=== PATIENT | female | born 1995 | race Two or more races ===

== ENCOUNTER 2022-06-09 08:18 | Emergency (ER) | payer OTHER, SELFPAY ==
--- OUTSIDE RECORDS SUMMARY | 2022-06-09 08:21 | XMS REPORT | Continuity of Care Document ---
:1995 Author Organization [facility] t Address [address] [place] [address] Care Team Providers Name Role Phone Pcp, Patient Does Not Have A Primary Care Physician [id number] KAYCEE KISER Attending Clinician Unavailable Doctor Unassigned, [place] Attending Clinician Unavailable Problems This patient has no known problems. Allergies, Adverse Reactions, Alerts Allergy Allergy Status Severity Reaction(s) Onset Inactive Treating Comm ents Source Name Type Date Date Clinician NO KNOWN Drug Active Univers ALLERGIE Class it[facility] of [facility] Social History Social Habit Start Date Stop Date Quantity Comments Source Sex Assigned At [birth year] [facility] 00:00:00 00:00:00 [facility] Smoking Status Start Date Stop Date Source Tobacco smoking consumption [facility] Branch Medications This patient has no known medications. Procedures Procedure Date / Time Performed Performing Clinician [facility] e ASSIGNMENT OF BENEFITS 2022-04-30 15:26:56 Doctor Unasskyle, No [facility] Branch Encounters Start End Encounter Admission Attending Care Care Encounter Source Date/Time Date/Time Type Type Clinicians Facility Department ID 2022-04-30 2022-04-[address] [facility] [id number] Univers 09:30:00 09:30:00 KAYCEE brink [facility] 2022-04-30 2022-04-30 Orders Doctor BLANCO [id number] Univers 00:00:00 00:00:00 Only Unassigned, RUKHSANA [id number] ity of [place] [facility] [id number] Rufus as [id number] [facility] 009 Branch Results This patient has no known results.
[2022-06-09 08:57] LABS: Absolute Lymphocytes (CBC) 2.3 K/uL (0.7-4.9); Hematocrit 36.1 % (36.0-45.0); Lymphocytes % 15.1 % (15.3-44.8); MCV 83.2 fL (80-100); MPV 9.3 fL (7.6-11.3); RBC Red Blood Cell Count 4.33 M/uL (3.86-4.86)
[2022-06-09 09:15] LABS: Albumin 2.5 g/dL (3.4-5.0); Bilirubin Total 0.2 mg/dL (0.2-1.0); Potassium 4.5 mmol/L (3.5-5.1); Protein, Total 7.3 g/dL (6.4-8.2)
[2022-06-09] MEDS ORDERED: ACETAMINOPHEN 500 MG TAB ONE (09:25)
[2022-06-09] MEDS ORDERED: DIAZEPAM 10 MG/2 ML INJ SYRINGE ONE (09:26)
[2022-06-09] MEDS ORDERED: NA CHLORIDE 0.9% 1,000 ML ONE (09:26)
--- NOTE | 2022-06-09 10:01 | RAD REPORT ---
EXAM DESCRIPTION: CT - Chest For Pe Angio - 06/09/2022 9:52 am CLINICAL HISTORY: SOB COMPARISON: No comparisons TECHNIQUE: Dynamically enhanced axial 3 mm thick images of the chest were obtained during administra tion of <100> mL Isovue 370 IV contrast. Coronal and oblique reconstruction images were generated and reviewed. Exam utilizes a protocol for optimal evaluation of pulmonary arterial tree. Maximum intensity projections 3D imaging was utilized All CT scans are performed using dose optimization technique as appropriate and may include automated exposure control or mA/KV adjustment according to patient size. FINDINGS: Chest Wall: No suspicious thyroid nodules or pathologic lymphadenopathy. Lungs: No acute abnormality. Pleura: No significant effusions or pneumothorax. Mediastinum/faustino: No pathologic lymphadenopathy. Pulmonary arteries/Aorta: Suboptimal opacification of the segmental and subsegmental pulmonary arteri es. No central pulmonary embolus. Filling defects identified in the segmental and subsegmental pulmon alistair artery's are favored to represent artifact. No aortic aneurysm. Heart: No significant pericardial effusion. Normal heart size. Upper abdomen: No acute abnormality. Bones: No acute abnormality. IMPRESSION: No central pulmonary embolus. Suboptimal opacification of the segmental and subsegmental pulmonary arteries limits evaluation. A few segmental pulmonary arterial filling defects identified are favored artifact. The lungs are otherwise clear.
--- NOTE | 2022-06-09 10:15 | RAD REPORT ---
EXAM DESCRIPTION: US - Abdomen Exam Limited - 06/09/2022 10:07 am CLINICAL HISTORY: ABD PAIN COMPARISON: No comparisons FINDINGS: The gallbladder demonstrates no gallstones. No pericholecystic fluid or gallbladder wall t hickening. The common bile duct was not visualized. The liver demonstrates no findings of intrahepatic biliary dilatation. IMPRESSION: Negative for cholelithiasis or acute cholecystitis. Nonvisualized common bile duct.
--- NOTE | 2022-06-09 10:20 | RAD REPORT ---
EXAM DESCRIPTION: US - OB Limited - 06/09/2022 10:07 am CLINICAL HISTORY: ABD PAIN COMPARISON: No comparisons FINDINGS: Limited Ob ultrasound due to patient's body habitus and patient's shortness of breath. Cephalic presenting fetus present with positive heart tones measuring 155 beats/minute. The rasheed centa is anterior. Unable to visualize the cervix. NOHELIA 9.3 cm which is lower limits of normal. IMPRESSION: 1. Limited by patient's body habitus and shortness of breath. 2. Cephalic presenting fetus with positive heart tones. 3. NOHELIA at the lower limits of normal. 4. Unable to visualize cervix.
--- NOTE | 2022-06-09 10:36 | ER ---
Nurse's Notes [facility] Name: Karine Austin Age: 27 yrs Sex: Female : 1995 Arrival Date: 06/09/2022 Time: 08:19 Bed 2 Private MD: Diagnosis: Chest pain, unspecified;Abdominal pain, unspecified Presentation: 06/09 08:28 Chief complaint: Patient states: L shoulder pain that radiates down to epigastric area ss that began last night. Pt reports she is 40 weeks and 1 day . Coronavirus screen: Client denies travel out of the [place] in the last 14 days. Ebola Screen: Patient denies exposure to infectious person. Patient denies travel to an Ebola-affected area in the 21 days before illness onset. Initial Sepsis Screen: Does the patient meet any 2 criteria? No. Patient's initial sepsis screen is negative. Does the patient have a suspected source of infection? No. Patient's initial sepsis screen is negative. Risk Assessment: Do you want to hurt yourself or someone else? Patient reports no desire to harm self or others. Onset of symptoms. 08:28 Method Of Arrival: Ambulatory ss 08:28 Acuity: AKOSUA 3 ss Historical: - Allergies: 08:32 No Known Allergies; ss - Home Meds: 08:32 None [Active]; ss - PMHx: 08:32 PCOS; hypertension; ss - PSHx: 08:32 cardiac surgery as a child; ss - Immunization history:: Client reports having NOT received the Covid vaccine. - Social history:: Smoking status: Patient denies any tobacco usage or history of. Screenin:27 [facility] ED Fall Risk Assessment (Adult) Score/Fall Risk Level 3 or more points = High hb Risk Oriented to surroundings, Maintained a safe environment, Educated pt \T\ family on fall prevention, incl call for assistance when getting out of bed, Remained with patient while ambulating, Utilized family, sitter, or virtual lacquer machine feeder as indicated. Abuse screen: Denies threats or abuse. Denies injuries from another. Nutritional screening: No deficits noted. Tuberculosis screening: No symptoms or risk factors identified. Assessment: 09:13 Reassessment: US at bedside. hb 09:28 General: Appears distressed, Behavior is cooperative, anxious. Pain: Pain currently is hb 10 out of 10 on a pain scale. Neuro: Level of Consciousness is awake, alert, obeys commands, Oriented to person, place, time, situation. Cardiovascular: Patient's skin is warm and dry. Rhythm is regular. Respiratory: Respiratory effort is labored, Respiratory pattern is regular, symmetrical. GI: Reports epigastric pain. : No signs and/or symptoms were reported regarding the genitourinary system. EENT: No signs and/or symptoms were reported regarding the EENT system. Derm: Skin is pink, warm \T\ dry. Musculoskeletal: No signs and/or symptoms reported regarding the musculoskeletal system. 09:44 Reassessment: Pt to CT via stretcher. hb 10:18 Reassessment: No changes from previously documented assessment. Patient and/or family hb updated on plan of care and expected duration. Pain level reassessed. 10:49 Reassessment: Report called to Anusha RO at [facility]. hb Vital Signs: 08:28 Pulse 84; Resp 18; Pulse Ox 98% on R/A; Weight 147.42 kg; Height 5 ft. 6 in. (167.64 ss cm); Pain 8/10; 09:14 BP 169 / 109; Pulse 85; Resp 24; Pulse Ox 96% on R/A; hb 10:18 BP 150 / 89; Pulse 92; Resp 23; Pulse Ox 95% on R/A; hb 08:28 Body Mass Index 52.46 (147.42 kg, 167.64 cm) ss Vitals: 09:22 Heart Tones 160. hb ED Course: 08:19 Patient arrived in ED. rg4 08:24 Saran Contreras PA is PHCP. jmm 08:24 Randall Renteria MD is Attending Physician. jmm 08:27 Belia Manning, JAYJAY is Primary Nurse. ko1 08:32 Triage completed. ss 08:32 Arm band placed on right wrist. ss 08:42 Missed attempt(s): 20 gauge in right antecubital area. mm9 08:43 Patient has correct armband on for positive identification. Placed in gown. Bed in low mm9 position. Call light in reach. Side rails up X 1. Adult w/ patient. Warm blanket given. Client placed on continuous cardiac and pulse oximetry monitoring. NIBP monitoring applied. bus driver/monitor on. Pulse ox on. NIBP on. 08:43 EKG done, by ED staff, reviewed by Saran FRY. mm9 08:45 Inserted saline lock: 22 gauge in right hand, using aseptic technique. Blood collected. hb 09:54 CT Chest For PE Angio In Process Unspecified. EDMS 10:09 US OB Limited In Process Unspecified. EDMS 10:09 US Abdomen Limited In Process Unspecified. EDMS 10:22 initiated a transfer with Suzan from the [facility] transfer center at the request of the eb patient. 10:[address] Pittman the L\T\D doctor resource paraprofessional for [facility] with Saran Fry for patient eb transfer consultation. 10:31 administrative approval given by Zohra Rizvi/ patient has been accepted to [facility] L\T\D/ Dr. Pittman has accepted the patient in transfer/ report to be called to [phone]. 11:02 No provider procedures requiring assistance completed. IV discontinued, intact, hb bleeding controlled, No redness/swelling at site. Administered Medications: 09:27 Drug: NS 0.9% 1000 ml Route: IV; Rate: 1 bolus; Site: right hand; hb 09:27 Drug: Valium (diazepam) 2 mg Route: IVP; Site: right hand; hb 09:43 Drug: Acetaminophen 1000 mg Route: PO; hb Medication: 09:44 VIS not applicable for this client. hb Outcome: 10:36 ER care complete, transfer ordered by . jazmín 11:02 Transferred by ground EMS to [facility], Note: [place] hb 11:02 Condition: stable 11:02 Instructed on the need for transfer, Demonstrated understanding of instructions. 11:24 Patient left the ED. hb Signatures: Dispatcher [employer] EDMS Saran Contreras PA PA jmm Smirch, Shelby, RN RN ss Sandhya Wells RN RN hb Lynne Horne rg4 Janene Amaya Kathy, RN RN Linda Gore mm9 Corrections: (The following items were deleted from the chart) 09:30 09:14 BP 169 / 109; ss hb 09:45 09:14 BP 169 / 109; Pulse 85bpm; Resp 22bpm; Pulse Ox 96% RA; hb hb 10:53 10:18 BP 150 / 59; Pulse 92bpm; Resp 23bpm; Pulse Ox 95% RA; hb hb
--- NOTE | 2022-06-09 10:36 | EDPHYS ---
Physician Documentation [facility] Name: Karine Austin Age: 27 yrs Sex: Female : 1995 Arrival Date: 06/09/2022 Time: 08:19 Bed 2 Private MD: ED Physician Randall Renteria HPI: 06/09 08:24 This 27 yrs old Female presents to ER via Ambulatory with complaints of 40 Weeks jmm , Abdominal Pain, Shoulder Pain. 08:24 The patient has shortness of breath at rest. Onset: The symptoms/episode began/occurred jmm gradually. Duration: The symptoms are continuous. The patient's shortness of breath is aggravated by nothing, is alleviated by nothing. This is a 37 year old female with a history of PCOS, HTN, that presents to the ED with complaints of left shoulder pain, chest pain, and left upper quadrant abdominal pain beginning this morning. Patient is at 40 weeks. No care in [place]. Recently moved from [place]. . Historical: - Allergies: 08:32 No Known Allergies; ss - Home Meds: 08:32 None [Active]; ss - PMHx: 08:32 PCOS; hypertension; ss - PSHx: 08:32 cardiac surgery as a child; ss - Immunization history:: Client reports having NOT received the Covid vaccine. - Social history:: Smoking status: Patient denies any tobacco usage or history of. ROS: 08:24 Constitutional: Negative for fever, chills, and weight loss. jmm 08:24 Cardiovascular: Positive for chest pain. 08:24 Respiratory: Positive for shortness of breath. 08:24 Abdomen/GI: Positive for abdominal pain. 08:24 All other systems are negative. Exam: 08:24 Constitutional: This is a well developed, well nourished patient who is awake, alert, jmm and in no acute distress. Head/Face: atraumatic. Eyes: EOMI, no conjunctival erythema appreciated ENT: Moist Mucus Membranes Neck: Trachea midline, Supple Chest/axilla: Normal chest wall appearance and motion. Cardiovascular: Regular rate and rhythm. No edema appreciated Respiratory: Normal respirations, no respiratory distress appreciated 08:24 Skin: General appearance color normal MS/ Extremity: Moves all extremities, no obvious deformities appreciated, no edema noted to the lower extremities Neuro: Awake and alert Psych: Behavior is normal, Mood is normal, Patient is cooperative and pleasant 08:24 Chest/axilla: Palpation: tenderness, that is moderate, of the left supraclavicular area, left clavicle and anterior aspect of left upper chest. 08:24 Abdomen/GI: Inspection: obese Palpation: soft, nontender, in all quadrants. 08:24 Back: pain, that is moderate, of the left trapezius. Vital Signs: 08:28 Pulse 84; Resp 18; Pulse Ox 98% on R/A; Weight 147.42 kg; Height 5 ft. 6 in. (167.64 ss cm); Pain 8/10; 09:14 BP 169 / 109; Pulse 85; Resp 24; Pulse Ox 96% on R/A; hb 10:18 BP 150 / 89; Pulse 92; Resp 23; Pulse Ox 95% on R/A; hb 08:28 Body Mass Index 52.46 (147.42 kg, 167.64 cm) ss MDM: 08:24 Patient medically screened. [facility] 10:07 Data reviewed: vital signs, nurses notes. Counseling: I had a detailed discussion with jazmín the patient and/or guardian regarding: the historical points, exam findings, and any diagnostic results supporting the discharge/admit diagnosis, lab results. ED course: CTA is negative for central PE. . 10:31 Differential diagnosis: Myocardial Infarction pneumonia, Pulmonary Embolism Sepsis [facility] Unstable Angina. Response to treatment: There is no appreciated change of the patient's symptoms at this time. ED course: I discussed the patient with Dr. Pittman whom accepted the patient to her service. . 06/09 08:30 Order name: CBC with Diff; Complete Time: 09:03 [facility] 06/09 08:30 Order name: CMP; Complete Time: 09:16 [facility] 06/09 08:30 Order name: Lipase; Complete Time: 09:16 [facility] 06/09 08:30 Order name: US OB Limited; Complete Time: 10:20 [facility] 06/09 08:30 Order name: US Abdomen Limited; Complete Time: 10:17 [facility] 06/09 08:30 Order name: IV Saline Lock; Complete Time: 09:10 [facility] 06/09 08:30 Order name: Labs collected and sent; Complete Time: 09:10 [facility] 06/09 08:30 Order name: Heart Tones; Complete Time: 09:43 [facility] 06/09 09:16 Order name: CT Chest For PE Angio; Complete Time: 10:02 jmm Administered Medications: 09:27 Drug: NS 0.9% 1000 ml Route: IV; Rate: 1 bolus; Site: right hand; hb 09:27 Drug: Valium (diazepam) 2 mg Route: IVP; Site: right hand; hb 09:43 Drug: Acetaminophen 1000 mg Route: PO; hb Disposition Summary: 06/09/22 10:36 Transfer Ordered Transfer Location: [facility] Reason: Higher level of care jmm Condition: Stable jmm Problem: new jmm Symptoms: are unchanged jmm Accepting Physician: Dr. Pittman(06/09/22 11:24) hb Diagnosis - Chest pain, unspecified jmm - Abdominal pain, unspecified jmm Forms: - Medication Reconciliation Form jmm - SBAR form jmm Signatures: Dispatcher [employer] EDMS Saran Contreras PA PA jmm Smirch, Shelby, RN RN Sandhya Wells RN RN hb Corrections: (The following items were deleted from the chart) 09:26 09:14 Chest Single View+[id number].[email or web address] ordered. EDMS EDMS 11:24 10:36 Dr. Zain spear hb
[2022-06-09 12:01] VITALS: BP 150/89; O2SAT 95
--- NOTE | 2022-06-12 17:22 | EKG ---
Test Date: 2022-06-09 Test Time: 08:45:20 Want Ad Receiver: FAMILIA MEASUREMENT RESULTS: Intervals: Rate: 86 NV: 202 QRSD: 80 QT: 376 QTc: 449 Media: P: 39 NV: 202 QRS: 57 T: 52 INTERPRETIVE STATEMENTS: Sinus rhythm with fusion complexes Otherwise normal ECG No previous ECG available for comparison Electronically Signed On 06-12-22 17:15:19 EDGE PLUGGER by Arnaldo Velásquez
== END 2022-06-09 11:24 | disposition short-term general hospital (02) ==
LOC: ER 08:18
DX: O26.893 Other specified pregnancy related conditions, third trimester (principal); Z3A.40 40 weeks gestation of pregnancy
CPT/HCPCS: 85025; 36415; 83690; 80053; 71275; 76705; 76815; 96374; 99285; Q9967; J3360; J7030; 93005

== ENCOUNTER 2023-02-24 06:08 | Emergency (ER) | payer OTHER ==
--- OUTSIDE RECORDS SUMMARY | 2023-02-24 06:12 | XMS REPORT | Continuity of Care Document ---
:1995 Author Organization [facility] t Address [address] [facility] [address] [place] [address] Care Team Providers Name Role Phone Toña VERA, Christi Primary Care Physician CORAZON MATTHEWS Attending Clinician Unavailable OBI-AGUSTO, CORETTA Attending Clinician Unavailable OBELHAM WOOTENMA Attending Clinician Unavailable BALDO STOKES Attending Clinician Unavailable TAMMY CORDON Attending Clinician Unavailable TAMMY CORDON Attending Clinician Unavailable ARSALAN AMAYA Attending Clinician Unavailable Lab, Web Sleep Attending Clinician Unavailable Arsalan Amaya MD Attending Clinician Christi Bertrand NP Attending Clinician Doctor Unassigned, [place] Attending Clinician Unavailable CHRISTI BERTRAND Attending Clinician Unavailable Baldo Stokes MD Attending Clinician [phone] KAMERON SOLIMAN Attending Clinician Unavailable KAMERON SOLIMAN Attending Clinician Unavailable Nichelle Pittman MD Attending Clinician Jatinder Joiner MD Attending Clinician Blanca Rodrigez MD Attending Clinician KAYCEE KISER Attending Clinician Unavailable CORAZON MATTHEWS Admitting Clinician Unavailable BALDO STOKES Admitting Clinician Unavailable Payers Payer Name Policy Type Policy Number Effective Date Expiration Date S ource MEDICARE PART A [id number] 2015 \\T\\ B 00:00:00 MEDICAID PENDING PENDING 2022 00:00:00 [place] [id number] 2022 00:00:00 [place] CHILDREN JO[place] [id number] 2022 00:00:00 Problems Condition Condition Condition Status Onset Resolution Last Treating Co mments Source Name Details Category Date Date Treatment Clinician Date General General Disease Active Univers counseling counseling 5 [place] of [place] 00 [facility] contracept contracept Br anch ion ion Negative Negative Disease Active Unive rs depression depression 08-27 it y of screening screening 00:00: a s 00 [facility] PCOS PCOS Disease Active Univers (polycysti (polycysti 08-27 it y of c ovarian c ovarian 00:00: syndrome) syndrome) 00 [facility] 40 weeks 40 weeks Disease Active Unive rs gestation gestation 2-12 ity of of of 00:00: [place] 00 [facility] History of History of Disease Active U nivers maternal maternal 2-12 ity of cardiac cardiac 00:00: [place] surgery surgery 00 [facility] Chronic Chronic Disease Active Univers hypertensi hypertensi 2-12 it y of on during on during 00:00: a s 00 [facility] BMI BMI Disease Active Univers 50.0-59.9, 50.0-59.9, 2-12 it y of adult adult 00:00: [place] 00 [facility] Acute Acute Disease Active Univers cystitis cystitis 2-12 ity of without without 00:00: [place] hematuria hematuria 00 [facility] Morbid Morbid Disease Active Univers obesity obesity 2-12 ity of with body with body 00:00: s mass index mass index 00 Me dical of 50 or of 50 or Branch higher higher Uterine Uterine Disease Active Univers contractio contractio 2-11 it y of ns during ns during 00:00: a s 00 [facility] Allergies, Adverse Reactions, Alerts Allergy Allergy Status Severity Reaction(s) Onset Inactive Treating Comm ents Source Name Type Date Date Clinician AMOXICIL DRUG Active Other-Cmnt Univ ers RAMA INGREDI 2-11 ity of 00:00: [place] 00 Medical Branch Amoxicil Propensi Active Other - See Yeast U nivers rama ty to comments 06-09 infection ity o f adverse 00:00: Pt denies [place] reaction 00 having an Medic al s to allergy Branch drug to Amoxicill in 3 NO KNOWN Drug Active Univers ALLERGIE Class ity of S [facility] Social History Social Habit Start Date Stop Date Quantity Comments Source Gender identity Universit y of [place] [facility] Sexual orientation Univer sity of [facility] ASSERTION [facility] Alcohol intake 2022-12-18 2022-12-18 Current drinker Unive rsity of 00:00:00 00:00:00 of alcohol [facility] (finding) Branch Exposure to 2022-08-06 2022-08-16 Not sure [facility] SARS-CoV-2 (event) 00:00:00 12:58:00 [facility] History of Social 2022-08-16 2022-08-16 Univers ity of function 00:00:00 00:00:00 [facility] Alcohol Comment 2022-06-10 2022-06-10 socially outside Uni versity of 00:00:00 [facility]:00:[facility] Tobacco use and 2022-06-09 2022-06-09 Smokeless Universit y of exposure 00:00:00 00:00:00 tobacco non-user [facility] [place] dical [place] [employer] 2022-06-09 2022-06-[address] [place] [address] of 00:00:00 00:00:00 [facility] Sex Assigned At [birth year] Universit y of 00:00:00 00:00:00 [place] [facility] Smoking Status Start Date Stop Date Source Tobacco smoking consumption Univ ersity of [facility] unknown [place] Never smoked tobacco [facility] Medications Ordered Filled Start Stop Current Ordering Indication Dosage Frequency Signature Comments Components Source Medication Medication Date Date Medication? Clinician (SIG) Name Name albuterol Yes [id number] 2{puff} Inhale 2 Univers 90 8-22 Puffs ity of mcg/actuati 00:00: every 6 [place] on inhaler 00 (six) Medical hours as Branch needed for Wheezing, Shortness of Breath or Chest tightness. gabapentin 2022-0 Yes [id number] 300mg Take 1 Univers 300 mg 8-22 capsule by ity of capsule 00:00: mouth in [place] 00 the Medical morning Branch and 1 capsule at noon and 1 capsule in the evening. lidocaine 5 2022-0 Yes [id number] Apply to Univers % ointment 8-22 area(s) 2 ity of 00:00: (two) [place] 00 times Medical daily. Branch methocarbam 2022-0 Yes [id number] 750mg Take 1 Univers oL 8-22 tablet by ity of (ROBAXIN-75 00:00: mouth 2 [place] 0) 750 mg 00 (two) Medical tablet times Branch daily as needed for Other (muscle tightness and spasms). albuterol 2022-0 Yes [id number] 2{puff} Inhale 2 Univers 90 8-22 Puffs ity of mcg/actuati 00:00: every 6 [place] on inhaler 00 (six) Medical hours as Branch needed for Wheezing, Shortness of Breath or Chest tightness. gabapentin 2022-0 Yes [id number] 300mg Take 1 Univers 300 mg 8-22 capsule by ity of capsule 00:00: mouth in [place] 00 the Medical morning Branch and 1 capsule at noon and 1 capsule in the evening. lidocaine 5 2022-0 Yes [id number] Apply to Univers % ointment 8-22 area(s) 2 ity of 00:00: (two) [place] 00 times Medical daily. Branch methocarbam 2022-0 Yes [id number] 750mg Take 1 Univers oL 8-22 tablet by ity of (ROBAXIN-75 00:00: mouth 2 [place] 0) 750 mg 00 (two) Medical tablet times Branch daily as needed for Other (muscle tightness and spasms). albuterol 2022-0 Yes [id number] 2{puff} Inhale 2 Univers 90 8-22 Puffs ity of mcg/actuati 00:00: every 6 [place] on inhaler 00 (six) Medical hours as Branch needed for Wheezing, Shortness of Breath or Chest tightness. gabapentin 2022-0 Yes [id number] 300mg Take 1 Univers 300 mg 8-22 capsule by ity of capsule 00:00: mouth in [place] 00 the Medical morning Branch and 1 capsule at noon and 1 capsule in the evening. lidocaine 5 0 Yes [id number] Apply to Univers % ointment 8-22 area(s) 2 ity of 00:00: (two) [place] 00 times Medical daily. Branch methocarbam 0 Yes [id number] 750mg Take 1 Univers oL 8-22 tablet by ity of (ROBAXIN-75 00:00: mouth 2 [place] 0) 750 mg 00 (two) Medical tablet times Branch daily as needed for Other (muscle tightness and spasms). albuterol 2022-0 Yes [id number] 2{puff} Inhale 2 Univers 90 8-22 Puffs ity of mcg/actuati 00:00: every 6 [place] on inhaler 00 (six) Medical hours as Branch needed for Wheezing, Shortness of Breath or Chest tightness. gabapentin 0 Yes [id number] 300mg Take 1 Univers 300 mg 8-22 capsule by ity of capsule 00:00: mouth in [place] 00 the Medical morning Branch and 1 capsule at noon and 1 capsule in the evening. lidocaine 5 0 Yes [id number] Apply to Univers % ointment 8-22 area(s) 2 ity of 00:00: (two) [place] 00 times Medical daily. Branch methocarbam 0 Yes [id number] 750mg Take 1 Univers oL 8-22 tablet by ity of (ROBAXIN-75 00:00: mouth 2 [place] 0) 750 mg 00 (two) Medical tablet times Branch daily as needed for Other (muscle tightness and spasms). albuterol 2022-0 Yes [id number] 2{puff} Inhale 2 Univers 90 8-22 Puffs ity of mcg/actuati 00:00: every 6 [place] on inhaler 00 (six) Medical hours as Branch needed for Wheezing, Shortness of Breath or Chest tightness. gabapentin 2022-0 Yes [id number] 300mg Take 1 Univers 300 mg 8-22 capsule by ity of capsule 00:00: mouth in [place] 00 the Medical morning Branch and 1 capsule at noon and 1 capsule in the evening. lidocaine 5 2022-0 Yes [id number] Apply to Univers % ointment 8-22 area(s) 2 ity of 00:00: (two) [place] 00 times Medical daily. Branch methocarbam Yes [id number] 750mg Take 1 Univers oL 8-22 tablet by ity of (ROBAXIN-75 00:00: mouth 2 [place] 0) 750 mg 00 (two) Medical tablet times Branch daily as needed for Other (muscle tightness and spasms). albuterol Yes [id number] 2{puff} Inhale 2 Univers 90 8-22 Puffs ity of mcg/actuati 00:00: every 6 [place] on inhaler 00 (six) Medical hours as Branch needed for Wheezing, Shortness of Breath or Chest tightness. gabapentin Yes [id number] 300mg Take 1 Univers 300 mg 8-22 capsule by ity of capsule 00:00: mouth in [place] 00 the Medical morning Branch and 1 capsule at noon and 1 capsule in the evening. lidocaine 5 Yes [id number] Apply to Univers % ointment 8-22 area(s) 2 ity of 00:00: (two) [place] 00 times Medical daily. Branch methocarbam Yes [id number] 750mg Take 1 Univers oL 8-22 tablet by ity of (ROBAXIN-75 00:00: mouth 2 [place] 0) 750 mg 00 (two) Medical tablet times Branch daily as needed for Other (muscle tightness and spasms). sulfur 2022- No [id number] 5mL 5 mL, Unive rs hexafluorid 09-04 Intravenou i ty of e microsphr 20:30: 20:24 s, ONCE, 1 [place] (LUMASON) 00 :00 dose, On Medica l injection Sat09/04/22 Br anch mL at 1530, Routine
restaurant crew member approving Restricted medication : CAM[place] FRAGA cyclobenzap 2022- No 5mg 5 mg, Univ ers rine 06-12 Oral, ity of (FLEXERIL) 17:45: 17:06 ONCE, 1 [place] tablet 5 mg 00 :00 dose, On Medi patsy Sat Branch 06/12/22 at 1145, Routine PNV 2022- No Take by Univers 102-IRON-FO 06-12 mouth. ity o f LATE 05:39: 00:00 [place] 1-DSS-DHA 15 :00 Medical ORAL Branch aspirin 81 2022-0 2022- No 81mg Take 81 mg Univers mg EC 2-14 14 by mouth ity of tablet 05:39: 00:00 in the [place] 15 :00 morning. Medical Branch calcium 2022-0 2022- No 1{tbl} Take 1 Unive rs carbonate 2-14 -14 tablet by ity of (TUMS) 200 05:39: 00:00 [place] mg calcium 15 :00 needed for Med ical (500 mg) Heartburn. Branc h chewable tablet Yes [id number] 1{tbl} Take 1 Univers [id number] 2-14 tablet by ity of fum-folic 00:00: mouth in [facility] s () 00 the Medical 27 mg iron- morning. Bran ch 1 mg folic tablet docusate Yes [id number] 200mg Take 2 U nivers 100 mg 2-14 capsules ity of capsule 00:00: by mouth [place] [address] once daily Medical as needed Branch for Constipati on. ferrous Yes [id number] 325mg Take 1 Un yoly sulfate 325 2-14 tablet by ity of mg (65 mg 00:00: mouth in [facility] iron) 00 the Medical tablet morning Branch and 1 tablet in the evening. ibuprofen Yes [id number] 600mg Take 1 Univers 600 mg 2-14 tablet by ity of tablet 00:00: mouth [place] 00 every 6 Medical (six) Branch hours as needed (Pain). Take with food or milk. Yes [id number] 1{tbl} Take 1 Univers [id number] 2-14 tablet by ity of fum-folic 00:00: [place] () 00 the Medical 27 mg iron- morning. Bran ch 1 mg folic tablet docusate Yes [id number] 200mg Take 2 U nivers 100 mg 2-14 capsules ity of capsule 00:00: by mouth [place] 00 once daily Medical as needed Branch for Constipati on. ferrous Yes [id number] 325mg Take 1 Un yoly sulfate 325 2-14 tablet by ity of mg (65 mg 00:00: mouth in [facility] iron) 00 the Medical tablet morning Branch and 1 tablet in the evening. ibuprofen 2023-0 Yes [id number] 600mg Take 1 Univers 600 mg 2-14 tablet by ity of tablet 00:00: mouth [place] 00 every 6 Medical (six) Branch hours as needed (Pain). Take with food or milk. 2022-0 Yes [id number] 1{tbl} Take 1 Univers [id number] 2-14 tablet by ity of fum-folic 00:00: [place] () 00 the Medical 27 mg iron- morning. Bran ch 1 mg folic tablet docusate 2022-0 Yes [id number] 200mg Take 2 U nivers 100 mg 2-14 capsules ity of capsule 00:00: by mouth [place] 00 once daily Medical as needed Branch for Constipati on. ferrous 2022-0 Yes [id number] 325mg Take 1 Un yoly sulfate 325 2-14 tablet by ity of mg (65 mg 00:00: [place] iron) 00 the Medical tablet morning Branch and 1 tablet in the evening. ibuprofen 2022-0 Yes [id number] 600mg Take 1 Univers 600 mg 2-14 tablet by ity of tablet 00:00: mouth [place] 00 every 6 Medical (six) Branch hours as needed (Pain). Take with food or milk. 2022-0 Yes [id number] 1{tbl} Take 1 Univers [id number] 2-14 tablet by ity of fum-folic 00:00: [place] () 00 the Medical 27 mg iron- morning. Bran ch 1 mg folic tablet docusate 2022-0 Yes [id number] 200mg Take 2 U nivers 100 mg 2-14 capsules ity of capsule 00:00: by mouth [place] 00 once daily Medical as needed Branch for Constipati on. ferrous 2022-0 Yes [id number] 325mg Take 1 Un yoly sulfate 325 2-14 tablet by ity of mg (65 mg 00:00: [place] iron) 00 the Medical tablet morning Branch and 1 tablet in the evening. ibuprofen 2022-0 Yes [id number] 600mg Take 1 Univers 600 mg 2-14 tablet by ity of tablet 00:00: mouth [place] 00 every 6 Medical (six) Branch hours as needed (Pain). Take with food or milk. 2022-0 Yes [id number] 1{tbl} Take 1 Univers [id number] 2-14 tablet by ity of fum-folic 00:00: mouth in [facility] ([facility]) 00 the Medical 27 mg iron- morning. Bran ch 1 mg folic tablet docusate 0 Yes [id number] 200mg Take 2 U nivers 100 mg 2-14 capsules ity of capsule 00:00: by mouth [place] 00 once daily Medical as needed Branch for Constipati on. ferrous 2022-0 Yes [id number] 325mg Take 1 Un yoly sulfate 325 2-14 tablet by ity of mg (65 mg 00:00: mouth in [facility] iron) 00 the Medical tablet morning Branch and 1 tablet in the evening. ibuprofen 2022-0 Yes [id number] 600mg Take 1 Univers 600 mg 2-14 tablet by ity of tablet 00:00: mouth [place] 00 every 6 Medical (six) Branch hours as needed (Pain). Take with food or milk. 2022-0 Yes [id number] 1{tbl} Take 1 Univers [id number] 2-14 tablet by ity of fum-folic 00:00: mouth in [facility] ([facility]) 00 the Medical 27 mg iron- morning. Bran ch 1 mg folic tablet docusate Yes [id number] 200mg Take 2 U nivers 100 mg 2-14 capsules ity of capsule 00:00: by mouth [place] 00 once daily Medical as needed Branch for Constipati on. ferrous 2022-0 Yes [id number] 325mg Take 1 Un yoly sulfate 325 2-14 tablet by ity of mg (65 mg 00:00: mouth in [facility]) 00 the Medical tablet morning Branch and 1 tablet in the evening. ibuprofen 2022-0 Yes [id number] 600mg Take 1 Univers 600 mg 2-14 tablet by ity of tablet 00:00: mouth [place] 00 every 6 Medical (six) Branch hours as needed (Pain). Take with food or milk. 2022-0 Yes [id number] 1{tbl} Take 1 Univers [id number] 2-14 tablet by ity of fum-folic 00:00: mouth in [facility] () 00 the Medical 27 mg iron- morning. Bran ch 1 mg folic tablet docusate 0 Yes [id number] 200mg Take 2 U nivers 100 mg 2-14 capsules ity of capsule 00:00: by mouth [place] 00 once daily Medical as needed Branch for Constipati on. ferrous 2022-0 Yes [id number] 325mg Take 1 Un yoly sulfate 325 2-14 tablet by ity of mg (65 mg 00:00: [place] iron) 00 the Medical tablet morning Branch and 1 tablet in the evening. ibuprofen 2022-0 Yes [id number] 600mg Take 1 Univers 600 mg 2-14 tablet by ity of tablet 00:00: mouth [place] 00 every 6 Medical (six) Branch hours as needed (Pain). Take with food or milk. 2022-0 Yes [id number] 1{tbl} Take 1 Univers [id number] 2-14 tablet by ity of fum-folic 00:00: [place] () 00 the Medical 27 mg iron- morning. Bran ch 1 mg folic tablet docusate 2022-0 Yes [id number] 200mg Take 2 U nivers 100 mg 2-14 capsules ity of capsule 00:00: by mouth [place] 00 once daily Medical as needed Branch for Constipati on. ferrous 2022-0 Yes [id number] 325mg Take 1 Un yoly sulfate 325 2-14 tablet by ity of mg (65 mg 00:00: [place] iron) 00 the Medical tablet morning Branch and 1 tablet in the evening. ibuprofen 2022-0 Yes [id number] 600mg Take 1 Univers 600 mg 2-14 tablet by ity of tablet 00:00: mouth [place] 00 every 6 Medical (six) Branch hours as needed (Pain). Take with food or milk. 2022-0 Yes [id number] 1{tbl} Take 1 Univers [id number] 2-14 tablet by ity of fum-folic 00:00: [place] () 00 the Medical 27 mg iron- morning. Bran ch 1 mg folic tablet docusate 2022-0 Yes [id number] 200mg Take 2 U nivers 100 mg 2-14 capsules ity of capsule 00:00: by mouth [place] 00 once daily Medical as needed Branch for Constipati on. ferrous 2022-0 Yes [id number] 325mg Take 1 Un yoly sulfate 325 2-14 tablet by ity of mg (65 mg 00:00: [place] iron) 00 the Medical tablet morning Branch and 1 tablet in the evening. ibuprofen 2022-0 Yes [id number] 600mg Take 1 Univers 600 mg 2-14 tablet by ity of tablet 00:00: mouth [place] 00 every 6 Medical (six) Branch hours as needed (Pain). Take with food or milk. 2022-0 Yes [id number] 1{tbl} Take 1 Univers [id number] 2-14 tablet by ity of fum-folic 00:00: [place] () 00 the Medical 27 mg iron- morning. Bran ch 1 mg folic tablet docusate 0 Yes [id number] 200mg Take 2 U nivers 100 mg 2-14 capsules ity of capsule 00:00: by mouth [place] 00 once daily Medical as needed Branch for Constipati on. ferrous 2022-0 Yes [id number] 325mg Take 1 Un yoly sulfate 325 2-14 tablet by ity of mg (65 mg 00:00: mouth in [facility] iron) 00 the Medical tablet morning Branch and 1 tablet in the evening. ibuprofen 2022-0 Yes [id number] 600mg Take 1 Univers 600 mg 2-14 tablet by ity of tablet 00:00: mouth [place] 00 every 6 Medical (six) Branch hours as needed (Pain). Take with food or milk. 0 Yes [id number] 1{tbl} Take 1 Univers [id number] 2-14 tablet by ity of fum-folic 00:00: [place] () 00 the Medical 27 mg iron- morning. Bran ch 1 mg folic tablet docusate 0 Yes [id number] 200mg Take 2 U nivers 100 mg 2-14 capsules ity of capsule 00:00: by mouth [place] 00 once daily Medical as needed Branch for Constipati on. ferrous 2022-0 Yes [id number] 325mg Take 1 Un yoly sulfate 325 2-14 tablet by ity of mg (65 mg 00:00: mouth in [facility] iron) [facility] the Medical tablet morning Branch and 1 tablet in the evening. ibuprofen 2022-0 Yes [id number] 600mg Take 1 Univers 600 mg 2-14 tablet by ity of tablet 00:00: mouth [place] 00 every 6 Medical (six) Branch hours as needed (Pain). Take with food or milk. 2022-0 Yes [id number] 1{tbl} Take 1 Univers [id number] 2-14 tablet by ity of fum-folic 00:00: mouth in [facility] ([facility]) 00 the Medical 27 mg iron- morning. Bran ch 1 mg folic tablet docusate 2022-0 Yes [id number] 200mg Take 2 U nivers 100 mg 2-14 capsules ity of capsule 00:00: by mouth [place] 00 once daily Medical as needed Branch for Constipati on. ferrous 2022-0 Yes [id number] 325mg Take 1 Un yoly sulfate 325 2-14 tablet by ity of mg (65 mg 00:00: mouth in [facility] iron) 00 the Medical tablet morning Branch and 1 tablet in the evening. ibuprofen 2022-0 Yes [id number] 600mg Take 1 Univers 600 mg 2-14 tablet by ity of tablet 00:00: mouth [place] 00 every 6 Medical (six) Branch hours as needed (Pain). Take with food or milk. 2022-0 Yes [id number] 1{tbl} Take 1 Univers [id number] 2-14 tablet by ity of fum-folic 00:00: mouth in [facility] ([facility]) 00 the Medical 27 mg iron- morning. Bran ch 1 mg folic tablet docusate 0 Yes [id number] 200mg Take 2 U nivers 100 mg 2-14 capsules ity of capsule 00:00: by mouth [place] 00 once daily Medical as needed Branch for Constipati on. ferrous 2022-0 Yes [id number] 325mg Take 1 Un yoly sulfate 325 2-14 tablet by ity of mg (65 mg 00:00: mouth in [facility] iron) 00 the Medical tablet morning Branch and 1 tablet in the evening. ibuprofen 2022-0 Yes [id number] 600mg Take 1 Univers 600 mg 2-14 tablet by ity of tablet 00:00: mouth [place] 00 every 6 Medical (six) Branch hours as needed (Pain). Take with food or milk. 2022-0 Yes [id number] 1{tbl} Take 1 Univers [id number] 2-14 tablet by ity of fum-folic 00:00: mouth in [facility] () 00 the Medical 27 mg iron- morning. Bran ch 1 mg folic tablet docusate 2022-0 Yes [id number] 200mg Take 2 U nivers 100 mg 2-14 capsules ity of capsule 00:00: by mouth [place] 00 once daily Medical as needed Branch for Constipati on. ferrous 0 Yes [id number] 325mg Take 1 Un yoly sulfate 325 2-14 tablet by ity of mg (65 mg 00:00: mouth in [facility] iron) 00 the Medical tablet morning Branch and 1 tablet in the evening. ibuprofen 0 Yes [id number] 600mg Take 1 Univers 600 mg 2-14 tablet by ity of tablet 00:00: mouth [place] 00 every 6 Medical (six) Branch hours as needed (Pain). Take with food or milk. phenylephri 2022- No [id number] 1{suppo Insert 1 Univers ne-cocoa 06-12 sitory} Suppositor i ty of butter 00:00: 00:00 y into [place] 0.25-88.44 00 :00 rectum in Medi patsy % the [place] suppository morning and 1 Suppositor y in the evening. polyethylen 0 2022- No [id number] 17g Take 1 Univers e glycol 06-12 Packet by ity o f 3350 17 00:00: 00:00 mouth in [place] gram powder 00 :00 the Medical morning. Branch ibuprofen Yes 600mg 600 mg, Univ ers (IBU) 2-13 Oral, ity of tablet 600 04:01: Q6HPRN, [place] mg 03 Starting Medical on [facility] 06/10/22 at 220, Until Discontinu ed, Routine, Pain (scale 4-6) acetaminoph 2022-0 Yes 650mg 650 mg, Un yoly en 2-13 Oral, ity of (TYLENOL) 04:01: Q6HPRN, [place] tablet 650 03 Starting Medic al mg on [facility] 06/10/22 at 220, Until Discontinu ed, Routine, Pain (scale 1-3) diphenhydrA 2022-0 Yes 25mg 25 mg, Univ ers MINE 2-13 Oral, ity of (BENADRYL) 04:01: Q6HPRN, [place] tablet 25 03 Starting Medica l mg on [facility] 06/10/22 at 220, Until Discontinu ed, Routine, Sleep, Itching ondansetron 2022-0 Yes 4mg 4 mg, Slow Univers (ZOFRAN 2-13 IV Push, ity of (PF)) 04:01: Q8HPRN, [place] injection 4 03 Starting Medi patsy mg on [place] Branch 06/10/22 at 2201, Until Discontinu ed, Routine, Nausea and Vomiting (N/V) simethicone 2022-0 Yes 160mg 160 mg, Un yoly (GAS RELIEF 2-13 Oral, ity of (SIMETHICON 04:01: PC+HSPRN, [place] E)) 03 Starting Medical chewable on [place] tablet 160 06/10/22 at mg 2200, Until Discontinu ed, Routine, Gas docusate 0 Yes 200mg 200 mg, Unive rs (COLACE) 2-13 Oral, ity of capsule 200 04:01: QDAILYPRN, [place] mg 03 Starting Medical on [place] 06/10/22 at 220, Until Discontinu ed, Routine, Constipati on magnesium Yes 30mL 30 mL, Univer s hydroxide 2-13 Oral, ity of (MILK OF 04:01: QDAILYPRN, [place] as MAGNESIA) 03 Starting Medica l 400 mg/5 mL on [place] suspension 06/10/22 at 30 mL 2200, Until Discontinu ed, Routine, Constipati on benzocaine- Yes Topical, Un yoly menthol 2-13 PRN, ity of (DERMOPLAST 04:01: Starting [place] 20-0.5 % 02 on [place] Medical topical 06/10/22 at Branch spray 2200, Until Discontinu ed, Routine, Perineum discomfort miSOPROStoL 0 2022- No 1000ug 1,000 mcg, Univers (CYTOTEC) 2 02-13 Rectal, ity of tablet 03:30: 01:56 ONCE, 1 [place] 1,000 mcg 00 :00 dose, On Medica l [place] Branch 06/10/22 at 2130, Routine PNV Yes Take by Univers 102-IRON-FO 2-12 mouth. ity of LATE 22:27: [place] 1-DSS-DHA 03 Medical ORAL Branch aspirin 81 0 Yes 81mg Take 81 mg U nivers mg EC 2-12 by mouth ity of tablet 22:27: in the [place] 03 morning. Medical Branch calcium Yes 1{tbl} Take 1 Univer s carbonate 2-12 tablet by ity o f (TUMS) 200 22:27: mouth as [place] mg calcium 03 needed for Med ical (500 mg) Heartburn. Branc h chewable tablet PNV 0 Yes Take by Univers 102-IRON-FO 2-12 mouth. ity of LATE 22:27: [place] 1-DSS-DHA 03 Medical ORAL Branch aspirin 81 2022-0 Yes 81mg Take 81 mg U nivers mg EC 2-12 by mouth ity of tablet 22:27: in the [place] morning. Medical Branch calcium 2022-0 Yes 1{tbl} Take 1 Univer s carbonate 2-12 tablet by ity o f (TUMS) 200 22:27: mouth as [place] as mg calcium 03 needed for Med ical (500 mg) Heartburn. Branc h chewable tablet acetaminoph 0 2022- No 650mg 650 mg, U nivers en 06-10 Oral, ity of (TYLENOL) 22:25: 06:13 Q6HPRN, [place] tablet 650 52 :48 Starting Medic al mg on Sun Branch 06/10/22 at 1625, Until 06/11/22 at 0013, Routine, Pain (scale 4-6) lactated 2022- No 500mL at 999 Unive rs ringers IV 06-10 mL/hr, 500 it y of infusion 14:45: 14:32 mL, IV [place] 500 mL 00 :38 Infusion, Medical ONCE, 1 Branch dose, On 06/10/22 at 0845, Routine ropivacaine 2022- Yes Epidural, U nivers 0.2 % 06-10 CONTINUOUS ity of (NAROPIN 14:01: PRN, [place] ()) 00 Starting Medical epidural on Sun Branch infusion 06/10/22 at 0801, Until Discontinu ed, Routine, Intra-op ropivacaine 2022-0 202- No Epidural, Univers 0.2 % 06-10 CONTINUOUS ity of (NAROPIN 14:01: 13:00 PRN, [place] ()) 00 :47 Starting Medical epidural on Sun Branch infusion 06/10/22 at 0801, Until Discontinu ed, Routine, Intra-op lidocaine-e Yes Epidural, U nivers pinephrine 2-12 ONCE INTRA ity of (XYLOCAINE 14:00: PROCEDURE, [place] W/EPINEPHRI 00 Starting Medi patsy NE) 1.5 on Sun Branch %-1:200,000 06/10/22 at injection 0800, Until Discontinu ed, Routine, Intra-op lidocaine-e 2022- No Epidural, Univers pinephrine 06-10 ONCE INTRA it y of (XYLOCAINE 14:00: 13:00 PROCEDURE, [place] W/EPINEPHRI 00 :47 Starting Medi patsy NE) 1.5 on [place] Branch %-1:200,000 06/10/22 at injection 0800, Until Discontinu ed, Routine, Intra-op lidocaine Yes Infiltrati Un yoly 1% 06-10 on, ONCE ity of (XYLOCAINE) 13:49: INTRA [place] 100 mg/10 00 PROCEDURE, Medi patsy mL (1 %) Starting Branch injection on 06/10/22 at 0749, Until Discontinu ed, Routine, Intra-op lidocaine 2022- No Infiltrati U nivers 1% 06-10 on, ONCE ity of (XYLOCAINE) 13:49: 13:00 INTRA [place] 100 mg/10 00 :47 PROCEDURE, Medi patsy mL (1 %) Starting Branch injection on 06/10/22 at 0749, Until Discontinu ed, Routine, Intra-op sodium 2022- No 30mL 30 mL, Univers citrate-cit 06-10 Oral, ity of v[place] acid 13:45: 13:55 PRE-PROCED [place] (BICITRA) 46 :00 URE ONCE, Medic al 500-334 1 dose, Branch mg/5 mL Starting solution 30 on [place] mL 06/10/22 at 0745, Until 06/10/22 at 0755, Routine, Surgery/Pr ocedure oxytocin 2022- No 2mU/min at 2-40 Un yoly (PITOCIN) 06-10 mL/hr, IV ity of 30 units in 13:27: 06:13 Infusion, [place] NS 500 mL 43 :48 TITRATE, Medica l IV infusion Starting Bran ch on 06/10/22 at 0727, Until 06/11/22 at 0013, KARTHIKEYAN lactated 2022- No 500mL at 999 Unive rs ringers IV 06-10 mL/hr, 500 it y of infusion 12:26: 06:13 mL, IV [place] 500 mL 17 :48 Infusion, Medical PRN - SEE Branch INSTRUCTIO NS, Starting on 06/10/22 at 0626, Until Sat06/11/22 at 0013, Routine D5W-LR IV 2022- No 1000mL at 1-125 U nivers infusion 06-10 mL/hr, IV ity o f 1,000 mL 12:26: 06:13 Infusion, [place] as 17 :48 TITRATE, Medical Starting Branch on 06/10/22 at 0626, Until Sat06/11/22 at 0013, Routine penicillin 2022- No 310 3 Million U nivers g pot in 06-10 Units, IV ity o f dextrose 3 05:30: 13:44 Piggyback, [place] million 00 :29 Q4H ABX, Medical unit/50 mL First dose Bra [facility] RTU iv on Sat piggyback 3 06/09/22 at Million 2330, Units Until Discontinu ed, Administer over 60 Minutes, 50 mL
Reas on for Anti-Infec tive: Empiric Non-Surgic al Prophylaxi s
Durat ion of therapy: 72 hours
S pecific indication : unknown gbs metroNIDAZO 2022- No 500mg 500 mg, U nivers LE (FLAGYL) 06-10 Oral, ity of tablet 500 02:00: 15:58 Q12H, 4 [place] mg 00 :22 doses, Medical First dose Branch on 06/09/22 at 2000, Last dose on Sat06/11/22 at 0800, Routine
Reason for Anti-Infec tive: Documented Infection< br>Documen saul Infection Site: Pelvic
Duration of Therapy: Other (see Comments) penicillin 2022- No 510 5 Million U nivers g potassium 06-10 Units, IV it y of 5 Million 01:31: 02:39 Piggyback, [place] Units in 00 :00 ONCE, 1 Medical NaCl 0.9% dose, On Branch (NS) 100 mL Sat MINI-BAG 06/09/22 at 1945, Administer over 60 Minutes, 100 mL
Reas on for Anti-Infec tive: Empiric Non-Surgic al Prophylaxi s
Durat ion of therapy: 72 hours
S pecific indication : unknown gbs oxytocin 2022- No 2mU/min at 2-40 Un yoly (PITOCIN) 06-10 02-12 mL/hr, IV ity of 30 units in 00:00: 16:00 Infusion, [place] NS 500 mL 00 :35 TITRATE, Medica l IV infusion Starting Bran ch on 06/09/22 at 1800, Until 06/10/22 at 1000, KARTHIKEYAN lactated 2022- No 500mL at 999 Unive rs ringers IV 06-09 02-12 mL/hr, 500 it y of infusion 22:19: 16:00 mL, IV [place] 500 mL 32 :35 Infusion, Medical PRN - SEE Branch INSTRUCTIO NS, Starting on 06/09/22 at 1619, Until 06/10/22 at 1000, Routine D5W-LR IV 2022- No 1000mL at 1-125 U nivers infusion 06-09 02-12 mL/hr, IV ity o f 1,000 mL 22:19: 16:00 Infusion, [place] 32 :35 TITRATE, Medical Starting Branch on 06/09/22 at 1619, Until 06/10/22 at 1000, Routine FENTanyl PF 2022- No 100ug 100 mcg, Univers (SUBLIMAZE 06-0912 Slow IV ity o f (PF)) 22:00: 16:00 Push, [place] injection 00 :35 Q1HPRN, Medical 100 mcg Starting Branch on 06/09/22 at 1600, Until 06/10/22 at 1000, Routine, Pain (scale 4-6), Pain (scale 7-10) ALBUTEROL Yes Univers SULFATE 9-14 ity of INHALE 00:00: [facility] ALBUTEROL Yes Univers SULFATE 9-14 ity of INHALE 00:00: [facility] Branch ALBUTEROL Yes Univers SULFATE 9-14 ity of INHALE 00:00: [facility] Branch ALBUTEROL 2022- No Univers SULFATE 01-10 ity of INHALE 00:00: 00:00 [place] 00 :00 Medical Branch ALBUTEROL 2022- No Univers SULFATE 01-10 ity of INHALE 00:00: 00:00 [place] 00 :00 Medical Branch ALBUTEROL 2022- No Univers SULFATE 01-10 ity of INHALE 00:00: 00:00 [place] 00 :00 Medical Branch Immunizations Ordered Filled Date Status Comments Source Immunization Name Immunization Name Varicella 2022-06-12 Completed University of (varivax)(chicken 00:00:00 [place] M edical pox) Branch Varicella 2022-06-12 Completed University of (varivax)(chicken 00:00:00 [place] M edical pox) Branch Varicella 2022-06-12 Completed University of (varivax)(chicken 00:00:00 [place] M edical pox) Branch Varicella 2022-06-12 Completed University of (varivax)(chicken 00:00:00 [place] M edical pox) Branch Varicella 2022-06-12 Completed University of (varivax)(chicken 00:00:00 [place] M edical pox) Branch Varicella 2022-06-12 Completed University of (varivax)(chicken 00:00:00 [place] M edical pox) Branch Varicella 2022-06-12 Completed University of (varivax)(chicken 00:00:00 [place] M edical pox) Branch Varicella 2022-06-12 Completed University of (varivax)(chicken 00:00:00 [place] M edical pox) Branch Varicella 2022-06-12 Completed University of (varivax)(chicken 00:00:00 [place] M edical pox) Branch Varicella 2022-06-12 Completed University of (varivax)(chicken 00:00:00 [place] M edical pox) Branch Varicella 2022-06-12 Completed University of (varivax)(chicken 00:00:00 [place] M [place]ical pox) Branch Varicella 2022-06-12 Completed University of (varivax)(chicken 00:00:00 [place] M edical pox) Branch Varicella 2022-06-12 Completed University of (varivax)(chicken 00:00:00 [place] M [place]ical pox) Branch Rho (d) Immune 2022-06-11 Completed University of Globulin 00:00:00 [facility] Rho (d) Immune 2022-06-11 Completed University of Globulin 00:00:00 [facility] Rho (d) Immune 2022-06-11 Completed University of Globulin 00:00:00 [facility] Rho (d) Immune 2022-06-11 Completed University of Globulin 00:00:00 [facility] Rho (d) Immune 2022-06-11 Completed University of Globulin 00:00:00 [facility] Rho (d) Immune 2022-06-11 Completed University of Globulin 00:00:00 [facility] Rho (d) Immune 2022-06-11 Completed University of Globulin 00:00:00 [facility] Rho (d) Immune 2022-06-11 Completed University of Globulin 00:00:00 [facility] Rho (d) Immune 2022-06-11 Completed University of Globulin 00:00:00 [facility] Rho (d) Immune 2022-06-11 Completed University of Globulin 00:00:00 [facility] Rho (d) Immune 2022-06-11 Completed University of Globulin 00:00:00 [facility] Rho (d) Immune 2022-06-11 Completed University of Globulin 00:00:00 [facility] Rho (d) Immune 2022-06-11 Completed University of Globulin 00:00:00 [facility] Rho (d) Immune Unknown Completed University of Globulin [facility] Varicella Unknown Completed University of (varivax)(chicken [place] M edical pox) Branch Vital Signs Vital Name Observation Time Observation Value Comments Source Systolic blood 2022-12-18 19:44:00 133 mm[Hg] Univer sity of pressure [facility] Diastolic blood 2022-12-18 19:44:00 89 mm[Hg] Unive rsity of pressure [facility] Heart rate 2022-12-18 19:43:00 77 /min [facility] Body temperature 2022-12-18 19:43:00 36.56 Mariajose [facility] ersity of [facility] Body height 2022-12-18 19:43:00 167.6 cm [facility] Body weight 2022-12-18 19:43:00 146.512 kg [facility] BMI 2022-12-18 19:43:00 52.13 kg/m2 Universi ty of [place] [facility] Oxygen saturation in 2022-12-18 19:43:00 96 /min University of Arterial blood by [facility] Pulse oximetry Branch Systolic blood 2022-08-22 19:19:00 127 mm[Hg] Univer sity of pressure [place] [facility] Diastolic blood 2022-08-22 19:19:00 83 mm[Hg] Unive rsity of pressure [place] [facility] Heart rate 2022-08-22 19:19:00 77 /min Universi ty [facility] [place] [facility] Respiratory rate 2022-08-22 19:19:00 18 /min Univ ersity of [place] [facility] Body height 2022-08-22 19:19:00 167.6 cm Universi ty [facility] [place] [facility] Body weight 2022-08-22 19:19:00 142.429 kg Universi ty of [place] [facility] BMI 2022-08-22 19:19:00 50.68 kg/m2 [facility] ty [facility] [place] [facility] Systolic blood 2022-08-16 19:09:00 141 mm[Hg] Univer sity of pressure [place] [facility] Diastolic blood 2022-08-16 19:09:00 93 mm[Hg] Unive rsity of pressure [place] [facility] Heart rate 2022-08-16 19:08:00 100 /min [facility]i ty [facility] [place] [facility] Body temperature 2022-08-16 19:08:00 36.33 Mariajose Univ ersity of [place] [facility] Body height 2022-08-16 19:08:00 167.6 cm Universi ty [facility] [place] [facility] Body weight 2022-08-16 19:08:00 143.337 kg [facility]i [facility] [place] [facility] BMI 2022-08-16 19:08:00 51.00 kg/m2 Universi ty [facility] [place] [facility] Oxygen saturation in 2022-08-16 19:08:00 97 /min University of Arterial blood by [facility] Pulse oximetry Branch Systolic blood 2022-06-15 20:30:00 131 mm[Hg] Univer sity of pressure [place] [facility] Diastolic blood 2022-06-15 20:30:00 88 mm[Hg] Unive rsity of pressure [place] [facility] Heart rate 2022-06-15 20:30:00 81 /min [facility]i ty [facility] [place] [facility] Body temperature 2022-06-15 20:30:00 36.5 Mariajose [facility] Respiratory rate 2022-06-15 20:30:00 18 /min [facility] Body height 2022-06-15 20:30:00 167.6 cm [facility] Body weight 2022-06-15 20:30:00 149.823 kg [facility] BMI 2022-06-15 20:30:00 53.31 kg/m2 [facility] Oxygen saturation in 2022-06-15 20:30:00 98 /min University of Arterial blood by [facility] Pulse oximetry [place] Systolic blood 2022-06-12 13:40:00 127 mm[Hg] Univer sity of pressure [place] [facility] Diastolic blood 2022-06-12 13:40:00 84 mm[Hg] [facility] Heart rate 2022-06-12 13:40:00 83 /min [facility] Body temperature 2022-06-12 13:40:00 36.67 Mariajose [facility] Respiratory rate 2022-06-12 13:40:00 18 /min [facility] Oxygen saturation in 2022-06-12 13:40:00 99 /min University of Arterial blood by [facility] Pulse oximetry Branch Body weight 2022-06-09 23:20:00 155.493 kg [facility] BMI 2022-06-09 23:20:00 55.33 kg/m2 [facility] Body height 2022-06-09 18:43:00 167.6 cm [facility] Procedures Procedure Date / Time Performing Clinician Source Performed SLEEP LAB RESULTS 2022-12-22 05:01:00 Christi Bertrand [facility] TRANSTHORACIC ECHO (TTE) 2022-09-04 20:38:00 [facility] CONTRAST [facility] HB -MATERNAL 2022-06-11 10:45:00 Corazon Matthews [facility] HEMORRHAGE SCREEN [facility] CBC WITH DIFF 2022-06-11 10:44:00 Chata Yusuf [place] [facility] VENOUS CORD GAS 2022-06-11 01:37:00 Jenusaitis, [facility] CENTRAL NEURAXIAL BLOCK 2022-06-10 14:19:00 Jad Mcconnell [facility] CREATININE 2022-06-10 12:36:00 Jenusaitis, [facility] RUBELLA SCREEN IGG 2022-06-10 12:36:00 Jenusaitis, [facility] VZV ANTIBODY SCREEN 2022-06-10 12:36:00 Jenusaitis, [facility] HEPATITIS B SURFACE 2022-06-10 12:36:00 Jenusaitis, [facility] ANTIGEN [facility] HIV 1/2 AG-AB WITH 2022-06-10 12:36:00 Jenusaitis, [facility] REFLEX [facility] SYPHILIS IGG/IGM 2022-06-10 12:36:00 Jenusaitis, [facility] HB ABO GROUPING 2022-06-10 12:33:00 Jenusaitis, [facility] RHO (D) IMMUNE GLOBULIN 2022-06-10 12:33:00 Chata Yusuf [facility] PROTEIN CREAT RATIO 2022-06-10 08:34:00 Nichelle Pittman [facility] URINE RANDOM [facility] POCT GLUCOSE (AUTOMATED) 2022-06-10 01:35:00 Nichelle Pittman [facility] ABORH CONFIRMATION (LAB 2022-06-09 20:30:00 Nichelle Pittman [facility] ONLY) Medical [place] LACTATE DEHYDROGENASE 2022-06-09 20:05:00 Nichelle Pittman [facility] URIC ACID, URIC RANDOM 2022-06-09 20:05:00 Nichelle Pittman [facility] SGOT (ASPARTATE AMINO 2022-06-09 19:48:00 Nichelle Pittman [facility] TRANSFER) Medical Branch ALANINE AMINO 2022-06-09 19:48:00 Nichelle Pittman [facility] TRANSFERASE(SGPT [facility] CBC WITH DIFF 2022-06-09 19:48:00 Nichelle Pittman [facility] HEPATITIS B SURFACE 2022-06-09 19:48:00 [facility] ANTIGEN Medical Branch ADC OR JAVED ONLY - 2022-06-09 19:48:00 Nichelle Pittman [facility] RPR [facility] Branch HIV 1/2 AG-AB WITH 2022-06-09 19:48:00 Nichelle Pittman [facility] y [facility] REFLEX Medical Branch HB ABO GROUPING 2022-06-09 19:40:00 Nichelle Pittman [place] [facility] URINALYSIS 2022-06-09 19:03:00 Nichelle Pittman [place] [facility] ADC CLC OR LCC ONLY - 2022-06-09 19:03:00 Nichelle Pittman [facility] WET PREP [facility] Branch GROUP B STREP SCREEN 2022-06-09 19:03:00 Nichelle Pittman [facility] CULTURE Medical Branch URINE CULTURE 2022-06-09 19:03:00 Nichelle Pittman [place] [facility] GC & CHLAMYDIA AMPLIFIED 2022-06-09 19:03:00 Nichelle Pittman [facility] [place] ASSAY [facility] GROUP B STREPTOCOCCUS BY 2022-06-09 19:03:00 Nichelle Pittman [facility] [place] PCR [facility] Branch CONSENT/REFUSAL FOR 2022-06-09 17:53:31 [facility] Unassigned, [facility] ASSIGNMENT OF BENEFITS 2022-06-09 17:53:00 Doctor Unassigned, No [facility] EXTERNAL PROVIDER 2022-06-09 06:01:00 Doctor Unassigned, No [facility] RECORDS [facility] HOSPITAL ADMISSION 2022-06-09 06:01:00 Doctor Unassigned, No [facility] ASSIGNMENT OF BENEFITS 2022-04-30 15:26:56 Doctor Unassigned, No [facility] Encounters Start End Encounter Admission Attending Care Care Encounter Source Date/Time Date/Time Type Type Clinicians Facility Department ID 2022-06-10 Outpatient P DARIANA PRJUAN JOSÉ KYLE [id number] Univers 03:28:39 [facility] 2023-01-07 Outpatient R [facility] [id number] Univers 13:45:00 13:45:00 ity of [facility] 2022-12-22 2022-12-24 Outpatient R MONIQUE [facility] [id number] Univers 20:00:00 07:38:46 ARSALAN ity of [facility] 2022-12-22 2022-12-22 Superintendent [employer], Web Sleep [facility] 1.2.840. 114 [id number] Univers 20:00:00 22:30:00 Visit Arsalan Amaya [id number] ity of [place].2.7.2.[place] PSYCHIATR [id number] Hi dical Y [address] [place] 2022-12-22 2022-12-22 Orders Toña [facility] 1.2.840.114 [id number] Univers 00:00:00 00:00:00 Only [place]u RONIT 350.1.13.10 [place]y of [place].2.[place] PROFESS[place] [id number] Hi dical NAL 044 [facility] 2022-12-19 2022-12-19 Patient Doctor FRANCIS 1.2.840.114 [id number] Univers 00:00:00 00:00:00 Secure Msg Unassigned, RUKHSANA 350.1.13.10 ity of [place] [facility] 4.2.7.2.686 [place] as [id number] [address] 2022-12-18 2022-12-18 Outpatient R CHRISTI BERTRAND [facility] [id number] Univers 14:30:00 15:25:40 CHRISTI BERTRAND ity [facility] 2022-12-18 2022-12-18 Office Toña [facility] 1.2.840.114 [id number] Univers 14:30:00 15:25:40 Visit Gagemorenita COTTRELL 350.1.13.10 ity of [place].2.[place] PROFESS[place] [id number] Hi dical NAL 044 [facility] 2022-11-28 2022-11-28 Outpatient R CHRISTI BERTRAND [facility] [id number] Univers 16:00:00 16:00:00 CHRISTI BERTRAND of [facility] 2022-11-27 2022-11-27 Outpatient R CHRISTI BERTRAND [facility] [id number] Univers 15:30:00 15:30:00 CHRISTI BERTRAND of [facility] 2022-10-26 2022-10-26 Outpatient R CHRISTI BERTRAND [facility] [id number] Univers 13:30:00 13:30:00 CHRISTI BERTRAND itjay of [facility] 2022-10-18 2022-10-18 Outpatient R DESTINYCAITLIN [facility] [id number] Univers 14:40:00 14:40:00 BALDO SELLERS it y [facility] 2022-10-17 2022-10-17 Outpatient R CHRISTI BERTRAND [facility] [id number] Univers 15:30:00 15:30:00 CHRISTI BERTRAND of [facility] 2022-09-04 2022-09-04 Outpatient R DESTINYCAITLIN [facility] [id number] Univers 14:53:00 23:59:00 BALDO SELLERS [facility] 2022-09-04 2022-09-04 [facility] 1.2.840.114 [id number] Univers 14:53:00 23:59:00 Encounter Baldo sellers [facility] 350.1.13.10 ity of [place] 4[place]2.7.2.[place] [id number] [place] [address] Branch 2022-08-22 2022-08-22 Outpatient R KAMERON SOLIMAN [facility] B [id number] Univers 14:00:00 14:31:48 KAMERON SOLIMAN [facility] 2022-08-22 2022-08-22 Office Deep [facility] 1.2.840.114 [id number] Univers 14:00:00 14:31:48 Visit Kameron MCKEON 350.1.13.10 it y of [facility] 4.2.7.2.[place] HEALTH [id number] [facility] 134 Branch 2022-08-16 2022-08-16 Outpatient R EL [facility] [id number] Univers 14:40:00 15:22:48 BALDO SELLERS it y of [facility] 2022-08-16 2022-08-16 Office El [facility] 1.2.840.114 [id number] Univers 14:40:00 15:00:00 Visit mary Baldoj carlos JIMENEZ 350.1.13.10 ity of [facility] 4.2.7.2.686 [place] PAV[place]ION [id number] Hi dical [address] [place] 2022-06-15 2022-06-15 Outpatient R CHRISTI BERTRAND [facility] [id number] Univers 14:00:00 15:14:53 CHRISTI BERTRAND y [facility] 2022-06-15 2022-06-15 Office Toña [facility] 1.2.840.114 [id number] Univers 14:00:00 15:14:53 Visit morenita COTTRELL 350.1.13.10 ity [facility] 4.2.7.2.[place] [facility] [id number] Hi dical NAL 044 [facility] 2022-06-09 2022-06-12 Inpatient P DARIANA [facility] KYLE [id number] Univers 11:44:00 14:41:00 CORAZON ity [facility] 2022-06-09 2022-06-12 Hospital Nichelle Pittman 1.2.840.114 [id number] Univers 11:44:00 14:41:00 Encounter Corazon Matthews 350.1.13.10 ity of [facility] 4.2.7.2.686 Ruf[place] as [id number] [address] 2022-06-10 2022-06-10 Anesthesia Jatinder Joiner 1.2.840.1 14 [id number] Univers 07:50:00 20:45:00 Event Blanca Rodrigez 350.1.13.10 ity of [facility] 4.2.7.2.686 Rufus as [id number] [facility] 132 Branch 2022-04-30 2022-04-30 Outpatient R MARGI, [facility] [id number] Univers 09:30:00 09:30:00 KAYCEE ity o f [facility] 2022-04-30 2022-04-30 Orders Doctor FRANCIS 1.2.840.114 [id number] Univers 00:00:00 00:00:00 Only Unassigned, RUKHSANA 350.1.13.10 ity of [place] [facility] 4.2.7.2.686 Rufus as [id number] [facility] 009 Branch Results Test Description Test Time Test Comments Results Result Comments Source MATERNAL HEMO SCREEN 2022-06-11 11:38:40 Test Item Value Reference Range Interpretation Comme nts SCREEN (test code = 846) Negative no cell seenPerformed at [facility] Laboratory Serv ices - [facility] Blood [address] [address]Wqjc Free: [phone] No. [id number] RHIG REQUIRED? (test code = 1 Syringe Performed at [facility] Laboratory Services - 1747) [facility] Blood [facility]3 01 [facility] s [id number] Free: [phone] A No. [id number] [facility] IMMUNE [id number] 04:17:53 Test Item Value Reference Range Interpretation Comments RHIG CANDIDATE? (test Yes- see A Patien t is a code = 5055) comment candidate for RhIg- Patient i s Rh Negative and baby is Rh Positive.Perfor me d at [facility] Laboratory Services - [facility] Blood [address] [place] [address] s [id number] Free: [phone] A No. [id number] Lab Interpretation Abnormal (test code = 22385-9) [facility] [id number] 02:00:57 Test Item Value Reference Range Interpretation Comments BASE EXCESS, CORD (test -0.6 mEq/L QUES code = 5282912224) AC PH, CORD (BEAKER) 7.24 7.18-7.38 (test code = 1339918905) PC02, CORD (test code = 70 See_Comment H [Au tomated message] [id number]) The system [employer] h generated this result transmitted ref erence range: 32 - 66 mmHg. The reference r francisco javier was not used to interpret this result as normal/abnor mal. PO2, CORD (test code = 15 See_Comment [Aut omated message] [id number]) The system [facility] generated this result transmitted ref erence range: 10 - 30 mmHg. The reference r francisco javier was not used to interpret this result as normal/abnor mal. BICARBONATE, CORD (test 29 See_Comment H [Au tomated message] code = 7003379155) The syste m which generated this result transmitted ref erence range: 17 - 27 mEq/L. The reference r francisco javier was not used to interpret this result as normal/abnor mal. Lab Interpretation (test Abnormal code = 01765-0) [id number]00[facility]41 Test Item Value Reference Range Interpretation Comments VENOUS BASE EXCESS, -2.1 mEq/L CORD (test code = 2599803936) VENOUS PH, CORD (test 7.32 7.25-7.45 code = 3202783336) VENOUS PC02, CORD 48 See_Comment [Automate d message] The (test code = system which ge nerated 2101730878) this result tra nsmitted reference range : 27 - 49 mmHg. The refer ence range was not used to interpret this result as normal/abnormal . VENOUS PO2, CORD (test 29 See_Comment [Aut omated message] The code = 6783572200) system [facility] generated this result tra nsmitted reference range : 17 - 41 mmHg. The refer ence range was not used to interpret this result as normal/abnormal . VENOUS BICARBONATE, 25 See_Comment QUES [Au tomated message] CORD (test code = The system which generated 5777636316) this result tra nsmitted reference range : 12 - 29 mEq/L. The refe rence range was not used to interpret this result as normal/abnormal . [facility]-AB WITH [id number] 16:17:18 Test Item Value Reference Range Interpretation Comments HIV 0.11 Negative Semi-quantitative (test code = 17152-8) ANN (test code = Non-reactive for HIV-1 ANN) antigen and HIV-1/HIV-2 antibodies. ?No laboratory evidence of HIV infection. ?Repeat in 2-4 weeks if acute HIV infection is suspected. [facility] CampusVZV ANTIBODY [id number] 15:15:46 Test Item Value Reference Range Interpretation Comments VZV IgG antibody Negative Negative (test code = 83077-5) ANN (test code = ANN) Positive - Indicates the patient was exposed to VZV through infection or vaccination.Negative - Indicates the patient could be susceptible to VZV infection.Equivocal - A second specimen should be sent for testing. [facility] CampusRUBELLA SCREEN [id number] 15:15:46 Test Item Value Reference Range Interpretation Comments Rubella screen IgG Positive Negative (test code = 7413450436) ANN (test code = ANN) Positive - Indicates the patient was exposed to Rubella through infection or vaccination.Negative - Indicates the patient could be susceptible to Rubella infection.Equivocal - A second specimen should be sent. [facility] CampusGALV ONLY - SYPHILIS [id number] 15:13:05 Test Item Value Reference Range Interpretation Comments Syphilis IgG/IgM (test Non-reactive Non-reactive code = 01444-5) ANN (test code = ANN) Non-reactive - No serologic evidence of T. pallidum infection. Cannot exclude incubating or early syphilis. Submit a second specimen in 2-4 weeks if syphilis is clinically suspected. Equivocal - Further testing to follow. Reactive - Further testing to follow. Lab Interpretation (test Normal code = 00385-6) [facility] CampusHepatitis B Surface [id number] 13:59:24 Test Item Value Reference Range Interpretation Comments HBsAg Semi-Quantitative (test code = 0.07 Negative 5195-3) [facility] CampusType and Screen - ONCE [id number] 13:48:31 Test Item Value Reference Range Interpretation Comments ABO & RH (test AB NEGATIVE Performed at [facility] code = 20) Laboratory Serv [facility] [address] [facility] s [address] Free: [phone] A No. [id number] IAT (test code = Negative Performed a t [facility] 1185) Laboratory Serv [facility] [address] [place] [address] Carleen Whitehead [address] Free: [phone] A No. [id number] [facility] CampusCREATININE2023-02-12 13:24:38 Test Item Value Reference Range Interpretation Comments CREATININE (test code 0.54 mg/dL 0.50-1.04 = 3010897944) eGFR (test code = 136.5 mL/min/1.73m2 6373328117) ANN (test code = ANN) Association of Glomerular Filtration Rate (GFR) and Staging of Kidney Disease* + + +- +| GFR (mL/min/1.73 m2) ?| With Kidney Damage ?| ?Without Kidney Damage+ ------+ ----+ ------+| ?>90 ?| ?Stage one ?| ? Normal ?+ -+ + -+| ?60-89 ?| ?Stage two ?| ? Decreased GFR ? + + +- +| ?30-59 ?| ?Stage three ?| ? Stage three ? + + +- +| ?15-29 ?| ?Stage four ? | ? Stage four ?+ -+ + -+| ?<15 (or dialysis) ? ?| ?Stage five ? | ? Stage five ?+ -+ + -+ *Each stage assumes the associated GFR level has been in effect for at least three months. ?Stages 1 to 5, with or without kidney disease, indicate chronic kidney disease. Notes: Determination of stages one and two (with eGFR >59mL/min/1.73 m2) requires estimation of kidney damage for at least three months as defined by structural or functional abnormalities of the kidney, manifested by either:Pathological abnormalities or Markers of kidney damage (including abnormalities in the composition of the blood or urine or abnormalities in imaging tests). [facility] CampusSERGIO JAY JAY SKINNER - [id number] 08:03:30 Test Item Value Reference Range Interpretation Comments RPR (Qualitative) (test code = Nonreactive Nonreactive 71046-4) Lab Interpretation (test code = Normal 82234-4) [facility] CampusHEPATITIS B SURFACE [id number] 03:40:12 Test Item Value Reference Range Interpretation Comments HBsAg Semi-Quantitative (test code = 0.41 Negative 5195-3) [facility] CampusPOCT GLUCOSE (AUTOMATED)2022-06-10 01:40:01 Test Item Value Reference Range Interpretation Comments POCT GLU (test code = 0083367983) 97 mg/dL 70-110 Lab Interpretation (test code = Normal 81303-6) [facility] CampusALANINE AMINO TRANSFERASE([id number] 22:01:33 Test Item Value Reference Range Interpretation Comments ALTv (test code = 1742-6) 16 U/L 5-35 Lab Interpretation (test code = Normal 87584-4) [facility] CampusSGOT (ASPARTATE AMINO TRANSFER)2022-06-09 22:01:12 Test Item Value Reference Range Interpretation Comments AST(SGOT) (test code = 6965893832) 38 U/L 13-40 Lab Interpretation (test code = Normal 34916-5) [facility]HIV 1/2 AG-AB WITH [id number] 21:48:31 Test Item Value Reference Range Interpretation Comments HIV 0.09 Negative Semi-quantitative (test code = 42424-4) ANN (test code = Non-reactive for HIV-1 ANN) antigen and HIV-1/HIV-2 antibodies. ?No laboratory evidence of HIV infection. ?Repeat in 2-4 weeks if acute HIV infection is suspected. [facility] CampusABORH Confirmation (Lab Only)2022-06-09 21:27:38 Test Item Value Reference Range Interpretation Comments ABO & RH (test AB Negative Performed at [facility] code = 20) Laboratory [facility] Blood Bank[address] [place] [address] Free: [phone] A No. [id number] [facility] CampusType and Screen - ONCE [id number] 21:21:22 Test Item Value Reference Range Interpretation Comments ABO & RH (test AB Negative Performed at [facility] code = 20) Laboratory [facility] Blood [facility] [place], [place] [address]Toll Free: [phone] A No. [id number] IAT (test code = Negative Performed a t [facility] 1185) Laboratory Serv [facility] Blood Bank[address] [place] [phone] Free: [phone] A No. [id number] [facility] CampusLACTATE [id number] 21:07:29 Test Item Value Reference Range Interpretation Comments LDH (test code = 2177596184) 213 U/L 120-246 Lab Interpretation (test code = Normal 32834-8) [facility] WITH [id number] 21:04:32 Test Item Value Reference Range Interpretation Comments WBC (test code = 18.85 See_Comment H [Automated 3274-2) message] The system which generated this result transmit saul reference range : 4.30 - 11.10 10*3/?L. The reference range was not used to interpret this result as normal/abnormal . RBC (test code = 4.26 See_Comment [Automated 769-8) message] The system which generated this result transmit saul reference range : 3.93 - 5.25 10*6/?L. The reference range was not used to interpret this result as normal/abnormal . HGB (test code = 11.7 g/dL 11.6-15.0 718-7) HCT (test code = 37.0 % 35.7-45.2 4544-3) MCV (test code = 86.9 fL 80.6-95.5 787-2) MCH (test code = 27.5 pg 25.9-32.8 785-6) MCHC (test code = 31.6 g/dL 31.6-35.1 786-4) RDW-SD (test code = 47.2 fL 39.0-49.9 20707-6) RDW-CV (test code = 14.8 % 12.0-15.5 788-0) PLT (test code = 326 See_Comment [Automated 067-3) message] The system which generated this result transmit saul reference range : 166 - 358 10*3/ ?L. The reference range was not u sed to interpret th is result as normal/abnormal . MPV (test code = 12.1 fL 9.5-12.9 09210-5) NRBC/100 WBC (test 0.0 See_Comment [Automat ed code = 8878312230) message] The system which generated this result transmit saul reference range : 0.0 - 10.0 /100 WBCs. The reference range was not used to interpret this result as normal/abnormal . NRBC x10^3 (test code See_Comment [Auto mated = 1947912015) message] The system which generated this result transmit saul reference range : 10*3/?L. The reference range was not used to interpret this result as normal/abnormal . GRAN MAT (NEUT) % 87.9 % (test code = 770-8) IMM GRAN % (test code 0.60 % = 8382349795) LYMPH % (test code = 6.4 % 736-9) MONO % (test code = 4.5 % 5905-5) EOS % (test code = 0.4 % 713-8) BASO % (test code = 0.2 % 706-2) GRAN MAT x10^3(ANC) 16.56 10*3/uL 1.88-7.09 H (test code = 6379718836) IMM GRAN x10^3 (test 0.12 10*3/uL 0.00-0.06 H code = 5582904519) LYMPH x10^3 (test code 1.21 10*3/uL 1.32-3.29 L = 731-0) MONO x10^3 (test code 0.84 10*3/uL 0.33-0.92 = 742-7) EOS x10^3 (test code = 0.08 10*3/uL 0.03-0.39 711-2) BASO x10^3 (test code 0.04 10*3/uL 0.01-0.07 = 704-7) POLYCHROMASIA (test 2+ See_Comment [Automa saul code = 13510-7) message] The system which generated this result transmit saul reference range : 2+. The referen ce range was not u sed to interpret th is result as normal/abnormal . BANDS (test code = Increased A 2466743397) DOHLE BODIES (test Present A code = 7792-5) GIANT PLATELETS (test Present See_Comment A [Auto mated code = 5908-9) message] The system which generated this result transmit saul reference range : (none). The reference range was not used to interpret this result as normal/abnormal . Lab Interpretation Abnormal (test code = 36313-3) [facility]"
[2023-02-24] MEDS ORDERED: ALBUTEROL 2.5 MG/3 ML NEB SOL ONE ×2 (06:26→08:00)
[2023-02-24 06:28] LABS: Arterial Blood Carboxyhemoglob 0.9 % (0-1.5); Blood Gas Oxyhemoglobin 95.6 % (94-97); Blood O2 Saturation 98.2 % (92-98.5)
[2023-02-24 06:31] LABS: Absolute Lymphocytes (CBC) 1.8 K/uL (0.7-4.9); Hematocrit 38.2 % (36.0-45.0); Lymphocytes % 11.2 % (15.3-44.8); MCV 76.6 fL (80-100); MPV 8.9 fL (7.6-11.3); Platelets 354 thou/uL (152-406); RBC Red Blood Cell Count 4.99 M/uL (3.86-4.86)
[2023-02-24] MEDS ORDERED: IPRATROPIUM BROM 0.5MG/2.5ML ONE ×2 (06:33→08:01)
[2023-02-24 06:50] LABS: Albumin 3.7 g/dL (3.4-5.0); Bilirubin Direct 0.1 mg/dL (0-0.2); Bilirubin Indirect, Calculated 0.3 mg/dL (0.2-0.8); Bilirubin Total 0.4 mg/dL (0.2-1.0); Magnesium 1.9 mg/dL (1.6-2.4); Potassium 3.6 mEq/L (3.5-5.1); Protein, Total 9.3 g/dL (6.4-8.2); Troponin High Sensitivity 25.2 pg/mL (<58.9)
[2023-02-24] MEDS ORDERED: AZITHROMYCIN 500 MG INJ IVPB ONE (08:00)
[2023-02-24] MEDS ORDERED: CEFTRIAXONE 1000 MG/VIAL ONE (08:00)
[2023-02-24] MEDS ORDERED: METHYLPREDNISOLONE 125 MG INJ ONE (08:00)
[2023-02-24] MEDS ORDERED: NA CHLORIDE 0.9% 250 ML ONE (08:01)
[2023-02-24] MEDS ORDERED: Magnesium Sulfate 2gm IVPB 2 G/50 ML BAG IV ONE (08:01)
[2023-02-24 08:34] LABS: SARS-CoV-2 Antigen Rapid Res Negative (Negative)
--- NOTE | 2023-02-24 09:16 | RAD REPORT ---
EXAM DESCRIPTION: Marian Single View02/24/2023 8:04 am CLINICAL HISTORY: sob COMPARISON: May 2022 FINDINGS: The lungs appear clear of acute infiltrate. The heart is normal size IMPRESSION: No acute abnormalities displayed
--- NOTE | 2023-02-24 09:25 | ER ---
Nurse's Notes [facility] Name: Karine Ausitn Age: 28 yrs Sex: Female : 1995 Arrival Date: 02/24/2023 Time: 06:08 Bed 7 Private MD: Diagnosis: Moderate persistent asthma with (acute) exacerbation Presentation: 02/24 06:27 Chief complaint: Patient states: SOB since yesterday at bedtime; pt also reports CP. km8 Coronavirus screen: Client denies travel out of the [place] in the last 14 days. Ebola Screen: No symptoms or risks identified at this time. Initial Sepsis Screen: Does the patient meet any 2 criteria? RR > 20 per min. HR > 90 bpm. Yes Does the patient have a suspected source of infection? No. Patient's initial sepsis screen is negative. Risk Assessment: Do you want to hurt yourself or someone else? Patient reports no desire to harm self or others. Onset of symptoms was February 23, 2023. 06:27 Method Of Arrival: Ambulatory 8 06:27 Acuity: AKOSUA 2 km8 Triage Assessment: 06:27 General: Appears distressed, Behavior is cooperative, appropriate for age. Pain: km8 Complains of pain in chest Aggravated by coughing and breathing. EENT: No deficits noted. No signs and/or symptoms were reported regarding the EENT system. Neuro: Dorman Agitation-Sedation Scale (RASS): 0 - Alert and Calm Level of Consciousness is awake, alert, obeys commands, Oriented to person, place, time, situation. Cardiovascular: Reports chest pain, shortness of breath, Capillary refill < 3 seconds Patient's skin is warm and dry. Respiratory: Reports shortness of breath at rest cough that is productive, Airway is patent Respiratory effort is labored, Respiratory pattern is tachypnea. GI: No deficits noted. No signs and/or symptoms were reported involving the gastrointestinal system. : No deficits noted. No signs and/or symptoms were reported regarding the genitourinary system. Derm: Skin is intact, is healthy with good turgor, Skin is diaphoretic, Skin is normal, Skin temperature is warm. Musculoskeletal: No deficits noted. No signs and/or symptoms reported regarding the musculoskeletal system. Range of motion: intact in all extremities. Historical: - Allergies: 07:30 No Known Allergies; aa5 - PMHx: 07:30 Hypertension; PCOS; aa5 09:25 Sleep apnea; aa5 - PSHx: 07:30 cardiac surgery as a child; aa5 - Immunization history:: Adult Immunizations unknown. - Family history:: not pertinent. - Social history:: Smoking status: Patient denies any tobacco usage or history of. Screenin:30 [facility] ED Fall Risk Assessment (Adult) History of falling in the last 3 months, km8 including since admission No falls in past 3 months (0 pts) Confusion or Disorientation No (0 pts) Intoxicated or Sedated No (0 pts) Impaired Gait No (0 pts) Mobility Assist Device Used No (0 pt) Altered Elimination No (0 pt) Score/Fall Risk Level 0 - 2 = Low Risk Oriented to surroundings, Maintained a safe environment, Educated pt \T\ family on fall prevention, incl call for assistance when getting out of bed, Assessed \T\ reinforced patient's understanding of fall precautions. Abuse screen: Denies threats or abuse. Denies injuries from another. Nutritional screening: No deficits noted. Tuberculosis screening:. Tuberculosis screening: No symptoms or risk factors identified. Assessment: 06:30 General: see triage assessment and notes. km8 07:20 General: Appears comfortable, Behavior is calm, cooperative. Pain: Denies pain. Neuro: aa5 Level of Consciousness is awake, alert, obeys commands, Oriented to person, place, time, situation. Cardiovascular: Heart tones S1 S2 present Rhythm is regular. Respiratory: Reports shortness of breath Airway is patent Respiratory effort is even, labored, Respiratory pattern is tachypnea Breath sounds are coarse bilaterally. GI: Abdomen is round Bowel sounds present X 4 quads. Abd is soft X 4 quads. : No signs and/or symptoms were reported regarding the genitourinary system. EENT: No signs and/or symptoms were reported regarding the EENT system. Derm: Skin is dry, Skin is normal, Skin temperature is warm. Musculoskeletal: Range of motion: intact in all extremities. 08:24 Reassessment: No changes from previously documented assessment. aa5 09:20 Reassessment: Patient states feeling better. Pt now resting in bed with eyes closed. . aa5 10:00 Reassessment: Pt remains resting in bed with eyes closed, equal and unlabored aa5 respirations. . 10:34 Reassessment: Report given to nurse Lena at [place], [place]. Awaiting EMS for aa5 transfer now, pt aware. . Vital Signs: 06:15 BP 170 / 84; Pulse 122; Resp 30 S; Pulse Ox 100% on Nebulizer Mask; km8 06:27 BP 188 / 80; Pulse 128; Resp 32 S; Temp 98.1(O); Pulse Ox 91% on R/A; Weight 154.22 kg km8 (R); Height 5 ft. 6 in. ; 06:30 BP 181 / 112; Pulse 135; Resp 35 S; Pulse Ox 97% on Nebulizer Mask; km8 07:00 BP 156 / 72; Pulse 118; Resp 34; Pulse Ox 99% on 4 lpm NC; km8 07:39 BP 155 / 72; Pulse 111; Resp 22 S; Temp 98.9(O); Pulse Ox 100% on 2 lpm NC; aa5 09:20 BP 144 / 58; Pulse 113; Resp 25 S; Temp 98.3(O); Pulse Ox 99% on 2 lpm NC; aa5 10:00 BP 133 / 81; Pulse 118; Resp 25 S; Temp 98.5(O); Pulse Ox 98% on 2 lpm NC; aa5 11:00 BP 119 / 67; Pulse 102; Resp 22 S; Pulse Ox 99% on 2 lpm NC; aa5 06:27 Body Mass Index 54.88 (154.22 kg, 167.64 cm) km8 ED Course: 06:10 Patient arrived in ED. kb3 06:13 Jose Hernandez MD is Attending Physician. rt 06:25 Inserted saline lock: 20 gauge in left antecubital area, using aseptic technique. Blood 8 collected. 06:26 Basic Metabolic Panel Sent. km8 06:26 CBC with Diff Sent. km8 06:26 LFT's Sent. km8 06:26 Magnesium Sent. km8 06:26 NT PRO-BNP Sent. km8 06:26 Troponin HS Sent. km8 06:27 Arm band placed on right wrist. km8 06:28 Triage completed. km8 06:30 Patient has correct armband on for positive identification. Bed in low position. Call km8 light in reach. Side rails up X 1. Client placed on continuous cardiac and pulse oximetry monitoring. NIBP monitoring applied. playground monitor on. 06:32 Aracelis Quiros, JAYJAY is Primary Nurse. km8 07:00 First set of blood cultures drawn by ED staff. aa5 07:30 Attending Physician role handed off by Jose Hernandez MD ec2 07:30 Kvng Doty MD is Attending Physician. ec2 08:05 XRAY Chest (1 view) In Process Unspecified. EDMS 08:10 Second set of blood cultures drawn and lactate drawn and sent to lab. aa5 09:12 initiated a transfer with Roney from the [facility] transfer center at the request of the eb patient. 09:20 connected the hospitalist concentrator operator for [facility] with Dr. Doty for patient eb transfer consultation. 09:38 administrative approval given by Roney Aparicio/ patient has been accepted to [facility] room 2221/ Dr. Donald Sweet has accepted the patient in transfer/ report to be called to [phone]. 11:25 No provider procedures requiring assistance completed. Patient transferred, IV remains aa5 in place. Administered Medications: 06:26 Drug: DuoNeb Nebulize (3:1) (2.5 mg - 0.5 mg) 3 ml Nebulizer once Route: Nebulizer; km8 06:50 Follow up: Response: No adverse reaction km8 08:15 Drug: Rocephin IV 1 grams IV at calculated rate once; Given slow IV push per pharmacy aa5 instructions Route: IV; Rate: calculated rate; Site: left antecubital; 08:18 Follow up: IV Status: Completed infusion aa5 08:18 Follow up: Response: No adverse reaction aa5 08:15 Drug: MethylPrednisoLONE IVP 125 mg IVP once Route: IVP; Site: left antecubital; aa5 08:37 Follow up: Response: No adverse reaction aa5 08:18 Drug: Magnesium Sulfate IVPB 2 grams IVPB once over 2 hrs Route: IVPB; Infused Over: 2 aa5 hrs; Site: left antecubital; 08:37 Follow up: Response: No adverse reaction aa5 10:18 Follow up: IV Status: Completed infusion aa5 08:24 Drug: DuoNeb Nebulize (3:1) (2.5 mg - 0.5 mg) 3 ml Nebulizer once Route: Nebulizer; aa5 08:54 Follow up: Response: No adverse reaction aa5 08:37 Drug: AZITHromycin IVPB 500 mg IVPB once over 1 hrs; (mix in 250 mL NS) Route: IVPB; aa5 Infused Over: 1 hrs; Site: left antecubital; :25 Follow up: Response: No adverse reaction aa5 09:37 Follow up: IV Status: Completed infusion aa5 Medication: 11:00 VIS not applicable for this client. aa5 Outcome: : ER care complete, transfer ordered by . ec2 11: Transferred by ground EMS Transfer form completed. X-rays sent w/ patient. Note: To aa5 [facility]. Report given to [facility] : Condition: stable 11: Instructed on the need for transfer, Demonstrated understanding of instructions, follow-up care, 11:34 Patient left the ED. aa5 Signatures: Dispatcher [employer] EDMS Jennifer Lin RN RN aa5 Janene Amaya Kelly, JAYJAY RN kb3 Jose Hernandez MD MD rt Kvng Doty MD MD ec2 Aracelis Quiros RN RN km8 Corrections: (The following items were deleted from the chart) 10:32 09:20 BP 144 / 58; Pulse 113bpm; Resp 25bpm; Spontaneous; Pulse Ox 99% RA; Temp 98.3F aa5 Oral; aa5 13:10 10:20 Reassessment: Pt remains resting in bed with eyes closed, equal and unlabored aa5 respirations. . aa5
--- NOTE | 2023-02-24 09:25 | EDPHYS ---
Physician Documentation [facility] Name: Karine Austin Age: 28 yrs Sex: Female : 1995 Arrival Date: 02/24/2023 Time: 06:08 Bed 7 Private MD: ED Physician Kvng Doty HPI: 02/24 07:11 This 28 yrs old Female presents to ER via Ambulatory with complaints of Shortness of rt breath. 07:11 Patient presents to the ED with shortness of breath. This started just prior to rt arrival. She has had similar episodes in the past, never have to be hospitalized. She states that she has no history of asthma. Orts a cough. Denies other acute complaints other than chest pain. Symptoms are severe in severity, no other aggravating elevating factors.. Historical: - Allergies: 07:30 No Known Allergies; aa5 - PMHx: 07:30 Hypertension; PCOS; aa5 09:25 Sleep apnea; aa5 - PSHx: 07:30 cardiac surgery as a child; aa5 - Immunization history:: Adult Immunizations unknown. - Family history:: not pertinent. - Social history:: Smoking status: Patient denies any tobacco usage or history of. ROS: 07:11 Constitutional: Negative for fever, chills, and weight loss, Abdomen/GI: Negative for rt abdominal pain, nausea, vomiting, diarrhea, and constipation, MS/Extremity: Negative for injury and deformity, Skin: Negative for injury, rash, and discoloration, Neuro: Negative for headache, weakness, numbness, tingling, and seizure, Psych: Negative for depression, anxiety, suicide ideation, homicidal ideation, and hallucinations, 07:11 Cardiovascular: Positive for chest pain, Negative for edema, 07:11 Respiratory: Positive for cough, shortness of breath, Exam: 07:11 Constitutional: This is a well developed, well nourished patient who is awake, alert, rt and in no acute distress. Head/Face: Normocephalic, atraumatic. Chest/axilla: Normal chest wall appearance and motion. Nontender with no deformity. No lesions are appreciated. Cardiovascular: Regular rate and rhythm with a normal S1 and S2. No gallops, murmurs, or rubs. Normal PMI, no JVD. No pulse deficits. Abdomen/GI: Soft, non-tender, with normal bowel sounds. No distension or tympany. No guarding or rebound. No evidence of tenderness throughout. Skin: Warm, dry with normal turgor. Normal color with no rashes, no lesions, and no evidence of cellulitis. MS/ Extremity: Pulses equal, no cyanosis. Neurovascular intact. Full, normal range of motion. Neuro: Awake and alert, GCS 15, oriented to person, place, time, and situation. Cranial nerves II-XII grossly intact. Motor strength 5/5 in all extremities. Sensory grossly intact. Cerebellar exam normal. Normal gait. Psych: Awake, alert, with orientation to person, place and time. Behavior, mood, and affect are within normal limits. 07:11 ECG was reviewed by the Attending Physician. 07:11 Respiratory: Wheezes with diminished breath sounds heard in all lung willis, moderate respiratory distress, Vital Signs: 06:15 BP 170 / 84; Pulse 122; Resp 30 S; Pulse Ox 100% on Nebulizer Mask; [facility] 06:27 BP 188 / 80; Pulse 128; Resp 32 S; Temp 98.1(O); Pulse Ox 91% on R/A; Weight 154.22 kg [facility] (R); Height 5 ft. 6 in. ; 06:30 BP 181 / 112; Pulse 135; Resp 35 S; Pulse Ox 97% on Nebulizer Mask; [facility] 07:00 BP 156 / 72; Pulse 118; Resp 34; Pulse Ox 99% on 4 lpm NC; 8 07:39 BP 155 / 72; Pulse 111; Resp 22 S; Temp 98.9(O); Pulse Ox 100% on 2 lpm NC; [facility] 09:20 BP 144 / 58; Pulse 113; Resp 25 S; Temp 98.3(O); Pulse Ox 99% on 2 lpm NC; aa5 10:00 BP 133 / 81; Pulse 118; Resp 25 S; Temp 98.5(O); Pulse Ox 98% on 2 lpm NC; aa5 11:00 BP 119 / 67; Pulse 102; Resp 22 S; Pulse Ox 99% on 2 lpm NC; aa5 06:27 Body Mass Index 54.88 (154.22 kg, 167.64 cm) [facility] MDM: 06:13 Patient medically screened. rt 07:30 ED course: Patient signed out to me by. Physician, in brief patient arrives today due ec2 to concern for asthma exacerbation with diffuse wheezing noted. Plan is to follow-up chest x-ray. Work-up reviewed by me, shows metabolic profile within appropriate, CBC that has a leukocytosis of 16.2, BNP minimally elevated at 501, pH status with a pH of 7.33 with some CO2 retention. Troponin within normal ranges. Plan is to reassess patient after interventions as well as follow-up on the chest x-ray. . 07:36 ED course: On reassessment patient with tachypnea persistent, still has diffuse ec2 scattered wheezes noted throughout, will give the patient magnesium as well as another dose of DuoNeb and steroids. Patient states that she does not have a formal diagnosis of asthma however does have albuterol prescribed to her.. 08:03 ED course: Chest x-ray independently reviewed and interpreted by me, shows no acute ec2 intrathoracic process.. 09:23 ED course: I will transfer to [place] due to capacity issues. I discussed the case ec2 with Dr. Funes, hospitalist who agrees accept the patient for admission.. 09:24 Data reviewed: vital signs. ec2 02/24 06:20 Order name: Basic Metabolic Panel; Complete Time: 06:51 rt 02/24 06:20 Order name: CBC with Diff; Complete Time: 06:51 rt 02/24 06:20 Order name: LFT's; Complete Time: 06:51 rt 02/24 06:20 Order name: Magnesium; Complete Time: 06:51 rt 02/24 06:20 Order name: NT PRO-BNP; Complete Time: 06:51 rt 02/24 06:20 Order name: Troponin HS; Complete Time: 06:51 rt 02/24 06:20 Order name: ABG; Complete Time: 06:51 rt 02/24 07:35 Order name: Blood Culture Adult (2) ec2 02/24 07:35 Order name: Lactate w/ 2H reflex if indic.; Complete Time: 08:51 ec2 02/24 07:35 Order name: SARS RAPID; Complete Time: 08:51 ec2 02/24 07:35 Order name: Influenza Screen (a \T\ B); Complete Time: 09:02 ec2 02/24 06:20 Order name: XRAY Chest (1 view); Complete Time: 09:21 rt 02/24 06:20 Order name: EKG; Complete Time: 06:21 rt 02/24 06:20 Order name: Cardiac monitoring; Complete Time: 06:26 rt 02/24 06:20 Order name: EKG - Nurse/Tech; Complete Time: 06:50 rt 02/24 06:20 Order name: IV Saline Lock; Complete Time: 06:26 rt 02/24 06:20 Order name: Labs collected and sent; Complete Time: 06: rt 02/24 06:20 Order name: O2 Per Protocol; Complete Time: 06: rt 02/24 06:20 Order name: O2 Sat Monitoring; Complete Time: 06: rt 02/24 07:35 Order name: IV Saline Lock - Large Bore; Complete Time: 07:40 ec2 02/24 07:35 Order name: Vital Signs; Complete Time: 07:38 ec2 EC:11 Rate is 135 beats/min. Rhythm is regular, Normal Sinus Rhythm with No ectopy. QRS [place] rt is Normal. UT interval is normal. QRS interval is normal. QT interval is normal. No Q waves. T waves are Normal. No ST changes noted. Interpreted by me. Administered Medications: 06:26 Drug: DuoNeb Nebulize (3:1) (2.5 mg - 0.5 mg) 3 ml Nebulizer once Route: Nebulizer; [facility] 06:50 Follow up: Response: No adverse reaction km8 08:15 Drug: Rocephin IV 1 grams IV at calculated rate once; Given slow IV push per pharmacy aa5 instructions Route: IV; Rate: calculated rate; Site: left antecubital; 08:18 Follow up: IV Status: Completed infusion aa5 08:18 Follow up: Response: No adverse reaction aa5 08:15 Drug: MethylPrednisoLONE IVP 125 mg IVP once Route: IVP; Site: left antecubital; aa5 08:37 Follow up: Response: No adverse reaction aa5 08:18 Drug: Magnesium Sulfate IVPB 2 grams IVPB once over 2 hrs Route: IVPB; Infused Over: 2 aa5 hrs; Site: left antecubital; 08:37 Follow up: Response: No adverse reaction aa5 10:18 Follow up: IV Status: Completed infusion aa5 08:24 Drug: DuoNeb Nebulize (3:1) (2.5 mg - 0.5 mg) 3 ml Nebulizer once Route: Nebulizer; aa5 08:54 Follow up: Response: No adverse reaction aa5 08:37 Drug: AZITHromycin IVPB 500 mg IVPB once over 1 hrs; (mix in 250 mL NS) Route: IVPB; aa5 Infused Over: 1 hrs; Site: left antecubital; 09:25 Follow up: Response: No adverse reaction aa5 09:37 Follow up: IV Status: Completed infusion aa5 Disposition: 09:24 Critical Care:. ec2 Disposition Summary: 02/24/23 09:25 Transfer Ordered Notes: Transfer Location: Other Acute Care Facility ec2 Reason: Higher level of care ec2 Condition: Stable ec2 Problem: an acute exacerbation ec2 Symptoms: have worsened ec2 Accepting Physician: Dr. Ramirez(02/24/23 11:34) aa5 Diagnosis - Moderate persistent asthma with (acute) exacerbation ec2 Forms: - Medication Reconciliation Form ec2 - SBAR form ec2 Critical care time excluding procedures: 09:24 Critical care time: Bedside Care: 30 minutes, Consultation: 5 minutes. Total time: 35 ec2 minutes Signatures: Dispatcher [employer] EDJennifer Arthur RN RN aa5 Jose Hernandez MD MD rt Kvng Doty MD MD ec2 Aracelis Quiros RN RN [id number] Corrections: (The following items were deleted from the chart) 08:25 07:35 Accucheck ordered. ec2 aa5 11:34 09:25 Dr. Ramirez ec2 aa5
[2023-02-24 12:03] VITALS: BP 144/58; TEMP 98.3; O2SAT 99
--- NOTE | 2023-02-26 07:54 | EKG ---
Test Date: 2023-02-24 Test Time: 06:45:34 Protection Specialist: SONNY MEASUREMENT RESULTS: Intervals: Rate: 135 CO: 152 QRSD: 86 QT: 276 QTc: 414 [place]: P: 80 CO: 152 QRS: 78 T: 51 INTERPRETIVE STATEMENTS: Sinus tachycardia Low voltage QRS Borderline ECG Compared to ECG 06/09/2022 08:45:20 Low QRS voltage now present Sinus rhythm no longer present Fusion complex(es) no longer present Electronically Signed On 02-26-23 07:51:28 CDT by Arnaldo Velásquez
--- NOTE | 2023-02-26 07:54 | EKG ---
Test Date: 2023-02-24 Test Time: 06:46:07 Clinic Nurse: SONNY MEASUREMENT RESULTS: Intervals: Rate: 136 AR: 154 QRSD: 82 QT: 278 QTc: 418 [place]: P: 74 AR: 154 QRS: 70 T: 13 INTERPRETIVE STATEMENTS: Sinus tachycardia Low voltage QRS T wave abnormality, consider inferior ischemia Abnormal ECG Compared to ECG 02/24/2023 06:45:34 T-wave abnormality now present Possible ischemia now present Electronically Signed On 02-26-23 07:51:26 CDT by Arnaldo Velásquez
== END 2023-02-24 11:34 ==
LOC: ER 06:08
DX: J45.41 Moderate persistent asthma with (acute) exacerbation (principal); I10 Essential (primary) hypertension; Z11.52 Encounter for screening for COVID-19
CPT/HCPCS: 96365; 93005 ×2; 87040 ×2; 85025; 80048; 36415; 83735; 80076; 83605; 84484; 83880; 87804 ×2; 71045; 94640; 82805; 96375; 99285; 87811; J3475; J7613 ×2; J7644 ×2; J2930; J7050; J0696